=== PATIENT | female | born 1955 | race Two or more races ===

== ENCOUNTER 2022-09-19 18:58 | Emergency (ER) | payer OTHER ==
[~2022-09-19] VITALS: Ht 152.4 cm; Wt 68.0 kg
[~2022-09-19 18:58] MED LIST: ATOR20TA50 PO; GABA300C10 PO; LOS25T PO
[2022-09-19 19:12] VITALS: BP 131/81
[2022-09-19] MEDS ORDERED: LIDOCAINE VISCOUS 2% 15ML UD PO ONE (19:30)
[2022-09-19] MEDS ORDERED: ALUM & MAG HYDROX-SIMETH LIQ(MAALOX) 30 ML PO ONE (19:30)
[2022-09-19] MEDS ORDERED: DONNATAL 5ml ORAL Elix (BELLADONNA ALK-PHENOBARB) PO ONE (19:30)
[2022-09-19 20:11] LABS: Urine Bacteria NONE SEEN /hpf (None Seen); Urine Blood 1+ /uL (Negative); Urine Specific Gravity 1.003 (1.001-1.035); Urine WBC 1 /hpf (0 - 5)
[2022-09-19 20:23] LABS: Basophils # (auto) 0 10 ^3/uL (0-0.2); Basophils % (auto) 0.5 % (0.0-2.0); Eosinophils # (auto) 0.2 10 ^3/uL (0-0.8); Eosinophils % (auto) 2.4 % (0.0-7.0); Hematocrit 32.8 % (36.0-46.0); Hemoglobin 11.1 g/dL (12.2-16.2); Lymphocytes # (auto) 1.7 10 ^3/uL (0.4-5.4); Lymphocytes % (auto) 24.4 % (10.0-50.0); Mean Corpuscular Hemoglobin 28.8 pg (28.0-32.0); Mean Corpuscular Hgb Conc. 33.7 g/dL (32.0-36.0); Mean Corpuscular Volume 85.3 fL (80.0-100.0); Monocytes # (auto) 0.6 10 ^3/uL (0-1.3); Neutrophils # (auto) 4.6 10 ^3/uL (1.6-8.6); Neutrophils % (auto) 64.7 % (37.0-80.0); Nucleated Red Blood Cells % 0.1 %; Red Blood Cells 3.84 10^6/uL (4.0-5.20); Red Cell Distribution Width 14.6 % (11.8-14.3); White Blood Cell 7.1 10^3/uL (4.4-10.8)
[2022-09-19 20:39] LABS: Albumin 4.2 g/dL (3.4-5.0); BUN/Creatinine Ratio 25.4; Calcium 9.8 mg/dL (8.5-10.1); Potassium 4.3 mmol/L (3.5-5.1)
[2022-09-19 20:42] LABS: Bilirubin, Total 0.4 mg/dL (0.2-1.0); Total Protein 7.8 g/dL (6.4-8.2)
== END 2022-09-20 00:56 | disposition left against medical advice (07) ==
LOC: EDBD 18:58 → ER 19:00
DX: K80.20 Calculus of gallbladder without cholecystitis without obstruction (principal); I10 Essential (primary) hypertension; E11.9 Type 2 diabetes mellitus without complications; Z90.710 Acquired absence of both cervix and uterus; Z88.6 Allergy status to analgesic agent
CPT/HCPCS: 36415; 74176; 80053; 81001; 84484; 85025

== ENCOUNTER 2022-11-22 09:04 | Emergency (ER) | payer OTHER ==
[~2022-11-22] VITALS: Ht 157.5 cm; Wt 55.0 kg
[2022-11-22] MEDS ORDERED: SODIUM CHLORIDE 0.9% 1,000 ML IV ONE (09:30)
[2022-11-22 09:39] LABS: Basophils # (auto) 0 10 ^3/uL (0-0.2); Basophils % (auto) 0.7 % (0.0-2.0); Eosinophils # (auto) 0.1 10 ^3/uL (0-0.8); Eosinophils % (auto) 1.5 % (0.0-7.0); Hemoglobin 10.3 g/dL (12.2-16.2); Lymphocytes # (auto) 1.6 10 ^3/uL (0.4-5.4); Lymphocytes % (auto) 24.7 % (10.0-50.0); Mean Corpuscular Hemoglobin 27.7 pg (28.0-32.0); Mean Corpuscular Hgb Conc. 32.1 g/dL (32.0-36.0); Mean Corpuscular Volume 86.3 fL (80.0-100.0); Monocytes # (auto) 0.4 10 ^3/uL (0-1.3); Monocytes % (auto) 5.4 % (0.0-12.0); Neutrophils # (auto) 4.5 10 ^3/uL (1.6-8.6); Neutrophils % (auto) 67.7 % (37.0-80.0); Nucleated Red Blood Cells % 0.1 %; Red Blood Cells 3.71 10^6/uL (4.0-5.20); Red Cell Distribution Width 15.8 % (11.8-14.3); White Blood Cell 6.6 10^3/uL (4.4-10.8)
[2022-11-22 09:53] LABS: Calcium 9.1 mg/dL (8.5-10.1); Potassium 4.1 mmol/L (3.5-5.1)
[2022-11-22 09:56] LABS: BUN/Creatinine Ratio 14.5; Bilirubin, Total 0.5 mg/dL (0.2-1.0)
[2022-11-22] MEDS ORDERED: PRED20TA2 PO (12:21)
[2022-11-22] MEDS ORDERED: MECL1TAB42 PO (12:21)
[2022-11-22 13:07] VITALS: BP 117/73
== END 2022-11-22 13:16 | disposition home or self-care (01) ==
LOC: ER 09:04
DX: R55 Syncope and collapse (principal); J18.9 Pneumonia, unspecified organism; E11.9 Type 2 diabetes mellitus without complications; I10 Essential (primary) hypertension; Z88.6 Allergy status to analgesic agent; Z79.899 Other long term (current) drug therapy
CPT/HCPCS: 36415; 70450; 71250; 80053; 84484; 85025; 93005

== ENCOUNTER → 2022-11-29 | Outpatient (CLI) | payer OTHER ==
[~2022-11-29] MED LIST changes: +MECL1TAB42 PO; +PRED20TA2 PO
[2022-11-29 11:10] LABS: Basophils # (auto) 0 10 ^3/uL (0-0.2); Basophils % (auto) 0.4 % (0.0-2.0); Eosinophils # (auto) 0 10 ^3/uL (0-0.8); Eosinophils % (auto) 0.1 % (0.0-7.0); Hemoglobin 10.7 g/dL (12.2-16.2); Lymphocytes # (auto) 2.5 10 ^3/uL (0.4-5.4); Lymphocytes % (auto) 22.5 % (10.0-50.0); Mean Corpuscular Hemoglobin 27.6 pg (28.0-32.0); Mean Corpuscular Hgb Conc. 32.4 g/dL (32.0-36.0); Mean Corpuscular Volume 85.3 fL (80.0-100.0); Monocytes # (auto) 0.9 10 ^3/uL (0-1.3); Monocytes % (auto) 8.4 % (0.0-12.0); Neutrophils # (auto) 7.6 10 ^3/uL (1.6-8.6); Neutrophils % (auto) 68.6 % (37.0-80.0); Red Blood Cells 3.87 10^6/uL (4.0-5.20); Red Cell Distribution Width 16.4 % (11.8-14.3); White Blood Cell 11.1 10^3/uL (4.4-10.8)
[2022-11-29 12:02] LABS: Urine Bacteria FEW /hpf (None Seen); Urine Blood 1+ /uL (Negative); Urine Mucus FEW (None Seen); Urine Specific Gravity 1.022 (1.001-1.035); Urine WBC 2 /hpf (0 - 5)
[2022-11-29 12:11] LABS: Folate (Folic Acid) 15.3 ng/mL (5.38-24)
[2022-11-29 12:18] LABS: Albumin 4.2 g/dL (3.4-5.0); BUN/Creatinine Ratio 23.5; Bilirubin, Total 0.6 mg/dL (0.2-1.0); Calcium 9.7 mg/dL (8.5-10.1); Total Protein 7.8 g/dL (6.4-8.2); Uric Acid 4.1 mg/dL (2.6-6.0)
== END | disposition home or self-care (01) ==
LOC: LAB 10:28
PROVIDERS: ATTEND Nurse Practitioner Family
DX: Z09 Encounter for follow-up examination after completed treatment for conditions other than malignant neoplasm (principal); C79.31 Secondary malignant neoplasm of brain; R42 Dizziness and giddiness; E11.9 Type 2 diabetes mellitus without complications; F41.9 Anxiety disorder, unspecified; M54.9 Dorsalgia, unspecified; I50.30 Unspecified diastolic (congestive) heart failure; R06.02 Shortness of breath
CPT/HCPCS: 36415; 80053; 80061; 81001; 82306; 82607; 82746; 83036; 84443; 84550; 85025; 87086

== ENCOUNTER 2023-01-17 22:36 | Inpatient (IN) | payer OTHER ==
[~2023-01-17] VITALS: Ht 157.5 cm; Wt 59.1 kg
[2023-01-17 23:51] VITALS: BP 107/71
[2023-01-18] VITALS: BP 127/63
[2023-01-18] MEDS ORDERED: ASCO-75 PO (00:15)
[2023-01-18] MEDS ORDERED: FAMO20TA10 PO (00:15)
[2023-01-18] MEDS ORDERED: METF-372 PO (00:15)
[2023-01-18] MEDS ORDERED: MORPHINE SULFATE INJ 2 MG/ml SYRG IV PRN (02:45)
[2023-01-18] MEDS ORDERED: ACETAMINOPHEN 325 MG TAB PO PRN (02:45)
[2023-01-18 03:30] LABS: Basophils # (auto) 0.1 10 ^3/uL (0-0.2); Basophils % (auto) 1.3 % (0.0-2.0); Eosinophils # (auto) 0.2 10 ^3/uL (0-0.8); Hematocrit 29.6 % (36.0-46.0); Hemoglobin 9.7 g/dL (12.2-16.2); Lymphocytes # (auto) 1.3 10 ^3/uL (0.4-5.4); Lymphocytes % (auto) 25.4 % (10.0-50.0); Mean Corpuscular Hemoglobin 28.4 pg (28.0-32.0); Mean Corpuscular Hgb Conc. 32.9 g/dL (32.0-36.0); Mean Corpuscular Volume 86.1 fL (80.0-100.0); Monocytes # (auto) 0.4 10 ^3/uL (0-1.3); Monocytes % (auto) 7.2 % (0.0-12.0); Neutrophils # (auto) 3.3 10 ^3/uL (1.6-8.6); Neutrophils % (auto) 63.1 % (37.0-80.0); Nucleated Red Blood Cells % 0.2 %; Red Blood Cells 3.44 10^6/uL (4.0-5.20); Red Cell Distribution Width 16.4 % (11.8-14.3); White Blood Cell 5.2 10^3/uL (4.4-10.8)
[2023-01-18 03:37] LABS: Albumin 3.3 g/dL (3.4-5.0); Calcium 8.9 mg/dL (8.5-10.1)
[2023-01-18 03:41] LABS: BUN/Creatinine Ratio 19.7 (10.0-20.0); Bilirubin, Total 0.4 mg/dL (0.2-1.0); Total Protein 6.5 g/dL (6.4-8.2)
[2023-01-18 04:06] LABS: Urine Bacteria NONE SEEN /hpf (None Seen); Urine Blood Negative /uL (Negative); Urine Specific Gravity 1.028 (1.001-1.035); Urine WBC 3 /hpf (0 - 5)
[2023-01-18 04:37] VITALS: BP 119/71
[2023-01-18 09:00] VITALS: BP 120/73
[2023-01-18] MEDS: ENOXAPARIN SOD 40 MG/0.4 ML SYRINGE SC SCH (09:12)
[2023-01-18] MEDS ORDERED: HYDROmorphone HCL 2 MG/ML VL/or syr IV PRN (09:30)
[2023-01-18] MEDS ORDERED: DEXTROSE (50%) 50ML SYRG IV PRN (09:30)
[2023-01-18] MEDS ORDERED: LORazepam 2MG/ML-1ML VIAL IV ONE (09:30)
[2023-01-18] MEDS ORDERED: LOSARTAN POTASSIUM 25 MG TAB PO SCH (10:00)
[2023-01-18] MEDS: PANTOPRAZOLE 40 MG/10 ML VIAL INJ IV SCH (10:28)
[2023-01-18] MEDS: ONDANSETRON HCL 4 MG/2 ML VIAL IV PRN ×2 (11:40→15:31)
[2023-01-18] MEDS: ACCU-CHEK COMFORT CURVE STRIP VI SCH ×2 (12:00→17:01)
[2023-01-18] MEDS: InsuLIN REG 1unit/0.01ml Soln (100units/ml) SC SCH ×2 (12:00→17:06)
[2023-01-18 13:00] VITALS: BP 123/70
[2023-01-18 17:00] VITALS: BP 125/64
[2023-01-18 22:00] VITALS: BP 127/63
[2023-01-18] MEDS: TEMAZEPAM 15 MG CAP PO PRN (22:01)
[2023-01-18] MEDS: ATORVASTATIN 20 MG TAB PO SCH (22:01)
[2023-01-19] MEDS: ACCU-CHEK COMFORT CURVE STRIP VI SCH ×5 (01:04→23:15)
[2023-01-19] MEDS: InsuLIN REG 1unit/0.01ml Soln (100units/ml) SC SCH ×5 (01:04→23:17)
[2023-01-19 04:20] LABS: Basophils # (auto) 0 10 ^3/uL (0-0.2); Basophils % (auto) 0.5 % (0.0-2.0); Eosinophils # (auto) 0.1 10 ^3/uL (0-0.8); Eosinophils % (auto) 2.2 % (0.0-7.0); Hematocrit 29.2 % (36.0-46.0); Hemoglobin 9.8 g/dL (12.2-16.2); Lymphocytes # (auto) 1.5 10 ^3/uL (0.4-5.4); Lymphocytes % (auto) 25.1 % (10.0-50.0); Mean Corpuscular Hemoglobin 28.6 pg (28.0-32.0); Mean Corpuscular Hgb Conc. 33.7 g/dL (32.0-36.0); Monocytes # (auto) 0.5 10 ^3/uL (0-1.3); Monocytes % (auto) 7.9 % (0.0-12.0); Neutrophils # (auto) 3.8 10 ^3/uL (1.6-8.6); Neutrophils % (auto) 64.3 % (37.0-80.0); Nucleated Red Blood Cells % 0.1 %; Red Blood Cells 3.44 10^6/uL (4.0-5.20); Red Cell Distribution Width 16.3 % (11.8-14.3); White Blood Cell 5.9 10^3/uL (4.4-10.8)
[2023-01-19 04:32] LABS: INR 1.05 (0.9-1.15); Partial Thromboplastin Time 26.7 sec (24.6-33.4)
[2023-01-19 04:34] LABS: Calcium 9.4 mg/dL (8.5-10.1); Potassium 3.8 mmol/L (3.5-5.1)
[2023-01-19 04:37] LABS: BUN/Creatinine Ratio 16.4 (10.0-20.0)
[2023-01-19 05:00] VITALS: BP 117/66
[2023-01-19 08:00] VITALS: BP 135/80
[2023-01-19 09:00] VITALS: BP_SYST 105; BP_SYST 135; BP_DIAS 58; BP_DIAS 77
[2023-01-19] MEDS: ENOXAPARIN SOD 40 MG/0.4 ML SYRINGE SC SCH (09:19)
[2023-01-19] MEDS: PANTOPRAZOLE 40 MG/10 ML VIAL INJ IV SCH (09:19)
[2023-01-19] MEDS: HYDROcodone-ACET 5/325MG TAB PO PRN (09:20)
[2023-01-19] MEDS ORDERED: KETOROLAC TROMETH 30 MG/ML 1ML VIAL IV ONE ×2 (10:30→11:30)
[2023-01-19] MEDS: methylPREDNISolone 4 MG TAB PO SCH ×2 (12:22→21:53)
[2023-01-19 13:00] VITALS: BP 115/60
[2023-01-19 17:00] VITALS: BP 151/92
[2023-01-19] MEDS: ATORVASTATIN 20 MG TAB PO SCH (21:53)
[2023-01-19 22:00] VITALS: BP 137/76
[2023-01-20 05:00] VITALS: BP 127/69
[2023-01-20] MEDS: ACCU-CHEK COMFORT CURVE STRIP VI SCH ×4 (06:15→23:57)
[2023-01-20] MEDS: InsuLIN REG 1unit/0.01ml Soln (100units/ml) SC SCH ×4 (07:11→23:57)
[2023-01-20 08:35] VITALS: BP 159/72
[2023-01-20] MEDS: HYDROcodone-ACET 5/325MG TAB PO PRN ×2 (11:02→20:45)
[2023-01-20 11:46] LABS: Hepatitis C Antibody Negative (Negative)
[2023-01-20 12:00] VITALS: BP 134/76
[2023-01-20] MEDS: PANTOPRAZOLE 40 MG TAB PO SCH (12:42)
[2023-01-20] MEDS: ENOXAPARIN SOD 40 MG/0.4 ML SYRINGE SC SCH (12:43)
[2023-01-20] MEDS: methylPREDNISolone 4 MG TAB PO SCH ×2 (13:02→21:57)
[2023-01-20 16:30] VITALS: BP 146/76
[2023-01-20] MEDS: GABAPENTIN 100 MG CAP PO SCH (21:57)
[2023-01-20] MEDS: ATORVASTATIN 20 MG TAB PO SCH (21:57)
[2023-01-20] MEDS: TEMAZEPAM 15 MG CAP PO PRN (21:57)
[2023-01-20 22:00] VITALS: BP 139/71
[2023-01-21 05:00] VITALS: BP 110/66
[2023-01-21] MEDS: ACCU-CHEK COMFORT CURVE STRIP VI SCH ×2 (05:53→12:00)
[2023-01-21] MEDS: InsuLIN REG 1unit/0.01ml Soln (100units/ml) SC SCH ×2 (05:57→12:39)
[2023-01-21] MEDS: PANTOPRAZOLE 40 MG TAB PO SCH (08:59)
[2023-01-21] MEDS: ENOXAPARIN SOD 40 MG/0.4 ML SYRINGE SC SCH (08:59)
[2023-01-21] MEDS: methylPREDNISolone 4 MG TAB PO SCH (08:59)
[2023-01-21] MEDS: GABAPENTIN 100 MG CAP PO SCH (08:59)
[2023-01-21] MEDS ORDERED: LISI-716 PO ×4 (09:17→09:18)
[2023-01-21] MEDS ORDERED: METO-6 PO ×4 (09:17→09:18)
[2023-01-21] MEDS ORDERED: HYDR-4902 PO (09:21)
[2023-01-21] MEDS ORDERED: GAB100C PO (09:21)
[2023-01-21 09:29] VITALS: BP 126/77
[2023-01-21] MEDS: HYDROcodone-ACET 5/325MG TAB PO PRN (12:01)
[2023-01-21 13:00] VITALS: BP 144/77
== END 2023-01-21 14:59 | disposition home or self-care (01) | DRG 552 ==
LOC: CENTRAL 22:36
PROVIDERS: ADMIT Nurse Practitioner; ATTEND Nurse Practitioner Acute Care
DX: M47.26 Other spondylosis with radiculopathy, lumbar region (principal); E44.0 Moderate protein-calorie malnutrition; E11.9 Type 2 diabetes mellitus without complications; E78.5 Hyperlipidemia, unspecified; I10 Essential (primary) hypertension; C50.919 Malignant neoplasm of unspecified site of unspecified female breast; Z91.013 Allergy to seafood; Z85.3 Personal history of malignant neoplasm of breast; Z88.6 Allergy status to analgesic agent; Z79.899 Other long term (current) drug therapy; Z90.13 Acquired absence of bilateral breasts and nipples; Z90.710 Acquired absence of both cervix and uterus; Z92.21 Personal history of antineoplastic chemotherapy; Z92.3 Personal history of irradiation; Z68.23 Body mass index [BMI] 23.0-23.9, adult; Z88.8 Allergy status to other drugs, medicaments and biological substances
CPT/HCPCS: 36415; 72148; 80048; 80053; 81001; 82962; 85025; 85610; 85730; 86803; 87081; 87340; 97110; 97116; 97163; 97530; C9113; G0378; J1815; J1885; J2405

== ENCOUNTER 2023-02-22 11:34 | Inpatient (IN) | payer OTHER ==
[~2023-02-22] VITALS: Ht 157.5 cm; Wt 53.7 kg
[~2023-02-22 11:34] MED LIST changes: +ASCO500T6 PO; +FAMO20TA10 PO; +GAB100C PO; +GABA-1250 PO; -GABA300C10 PO; +HYDR-4902 PO; +METF-372 PO
[2023-02-22 12:09] LABS: Basophils # (auto) 0 10 ^3/uL (0-0.2); Basophils % (auto) 0.5 % (0.0-2.0); Eosinophils # (auto) 0.1 10 ^3/uL (0-0.8); Eosinophils % (auto) 1.1 % (0.0-7.0); Hematocrit 34.2 % (36.0-46.0); Hemoglobin 10.9 g/dL (12.2-16.2); Lymphocytes # (auto) 0.6 10 ^3/uL (0.4-5.4); Lymphocytes % (auto) 6.8 % (10.0-50.0); Mean Corpuscular Hemoglobin 28.4 pg (28.0-32.0); Mean Corpuscular Volume 88.7 fL (80.0-100.0); Monocytes # (auto) 0.8 10 ^3/uL (0-1.3); Monocytes % (auto) 8.8 % (0.0-12.0); Neutrophils # (auto) 7.3 10 ^3/uL (1.6-8.6); Neutrophils % (auto) 82.8 % (37.0-80.0); Red Blood Cells 3.86 10^6/uL (4.0-5.20); Red Cell Distribution Width 15.9 % (11.8-14.3); White Blood Cell 8.8 10^3/uL (4.4-10.8)
[2023-02-22 12:27] LABS: INR 0.97 (0.9-1.15); Partial Thromboplastin Time 29.1 sec (24.6-33.4)
[2023-02-22 12:53] LABS: Lactic Acid w/Reflex 2.3 mmol/L (0.4-2.0)
[2023-02-22 12:54] LABS: Albumin 3.7 g/dL (3.4-5.0); BUN/Creatinine Ratio 16.4 (10.0-20.0); Calcium 9.2 mg/dL (8.5-10.1); Potassium 4.5 mmol/L (3.5-5.1)
[2023-02-22 12:56] LABS: Bilirubin, Total 0.5 mg/dL (0.2-1.0); Total Protein 7.3 g/dL (6.4-8.2)
[2023-02-22] MEDS ORDERED: IOHEXOL 350 MG/ML 100ML IJ ONE ×2 (13:31→13:40)
[2023-02-22] MEDS ORDERED: ACETAMINOPHEN 325 MG TAB PO ONE (14:00)
[2023-02-22] MEDS ORDERED: PIPERACILLIN-TAZOB 3.375GM 100 ML IV ONE (14:00)
[2023-02-22] MEDS ORDERED: SODIUM CHLORIDE 0.9% 1,000 ML IV ONE (14:00)
[2023-02-22] MEDS ORDERED: guaiFENesin-CODEINE Liq 5 ML UD PO ONE (14:45)
[2023-02-22] MEDS ORDERED: HYDROcodone-ACET 5/325MG TAB PO PRN (15:30)
[2023-02-22] MEDS ORDERED: NITROGLYCERIN 0.4 MG SL TAB SL PRN (15:30)
[2023-02-22] MEDS ORDERED: MORPHINE SULFATE INJ 2 MG/ml SYRG IV PRN (15:30)
[2023-02-22] MEDS ORDERED: IPRATROPIUM BROM 0.5 MG/2.5ML INH SOL NEB PRN (15:30)
[2023-02-22] MEDS ORDERED: ACETAMINOPHEN 325 MG TAB PO PRN (15:30)
[2023-02-22] MEDS ORDERED: PROMETHAZINE W/CODEINE 5 ML ORAL SYRUP PO PRN (15:30)
[2023-02-22] MEDS ORDERED: ONDANSETRON HCL 4 MG/2 ML VIAL IV PRN (15:30)
[2023-02-22] MEDS ORDERED: DEXTROSE (50%) 50ML SYRG IV PRN (15:45)
[2023-02-22] MEDS: AZITHROMYCIN 500MG/ 250ML 250 ML IV SCH (16:44)
[2023-02-22] MEDS: InsuLIN REG 1unit/0.01ml Soln (100units/ml) SC SCH ×2 (17:33→22:00)
[2023-02-22] MEDS: ACCU-CHEK COMFORT CURVE STRIP VI SCH ×2 (17:33→22:00)
[2023-02-22 18:52] VITALS: BP 133/58
[2023-02-22] MEDS: GABAPENTIN 300 MG CAP PO SCH (22:00)
[2023-02-23 05:00] VITALS: BP 126/68
[2023-02-23 05:47] LABS: Basophils # (auto) 0 10 ^3/uL (0-0.2); Basophils % (auto) 0.5 % (0.0-2.0); Eosinophils # (auto) 0.1 10 ^3/uL (0-0.8); Eosinophils % (auto) 2.4 % (0.0-7.0); Hematocrit 30.6 % (36.0-46.0); Hemoglobin 9.9 g/dL (12.2-16.2); Lymphocytes # (auto) 0.6 10 ^3/uL (0.4-5.4); Lymphocytes % (auto) 10.4 % (10.0-50.0); Mean Corpuscular Hemoglobin 28.6 pg (28.0-32.0); Mean Corpuscular Hgb Conc. 32.5 g/dL (32.0-36.0); Mean Corpuscular Volume 88.1 fL (80.0-100.0); Monocytes # (auto) 0.7 10 ^3/uL (0-1.3); Monocytes % (auto) 13.2 % (0.0-12.0); Neutrophils % (auto) 73.5 % (37.0-80.0); Red Blood Cells 3.47 10^6/uL (4.0-5.20); Red Cell Distribution Width 16.1 % (11.8-14.3); White Blood Cell 5.4 10^3/uL (4.4-10.8)
[2023-02-23 06:05] LABS: Potassium 3.8 mmol/L (3.5-5.1)
[2023-02-23 06:18] LABS: Albumin 3.4 g/dL (3.4-5.0); BUN/Creatinine Ratio 16.2 (10.0-20.0); Bilirubin, Total 0.4 mg/dL (0.2-1.0); Calcium 8.6 mg/dL (8.5-10.1); Total Protein 6.5 g/dL (6.4-8.2)
[2023-02-23] MEDS: ACCU-CHEK COMFORT CURVE STRIP VI SCH ×3 (06:53→18:07)
[2023-02-23] MEDS: InsuLIN REG 1unit/0.01ml Soln (100units/ml) SC SCH ×3 (06:54→18:48)
[2023-02-23 08:00] VITALS: BP 116/57
[2023-02-23] MEDS: MORPHINE SULFATE INJ 2 MG/ml SYRG IV PRN ×2 (08:22→12:51)
[2023-02-23] MEDS ORDERED: cefTRIAXone 1GM/50ML D5W 50 ML IV ONE (09:15)
[2023-02-23] MEDS: GABAPENTIN 300 MG CAP PO SCH (09:57)
[2023-02-23] MEDS ORDERED: ASCORBIC ACID 500 MG TAB PO SCH (10:00)
[2023-02-23] MEDS ORDERED: LOSARTAN POTASSIUM 25 MG TAB PO SCH (10:00)
[2023-02-23] MEDS ORDERED: ATORVASTATIN 20 MG TAB PO SCH (10:00)
[2023-02-23] MEDS ORDERED: FAMOTIDINE 20 MG TAB PO SCH (10:00)
[2023-02-23] MEDS: AZITHROMYCIN 500MG/ 250ML 250 ML IV SCH (10:42)
[2023-02-23 13:00] VITALS: BP 129/63
[2023-02-23] MEDS ORDERED: LEVO750T8 PO (13:10)
[2023-02-23] MEDS ORDERED: ALBUAER3 IN (13:10)
[2023-02-23 13:34] LABS: Urine Bacteria NONE SEEN /hpf (None Seen); Urine Blood Negative /uL (Negative); Urine Specific Gravity 1.005 (1.001-1.035); Urine WBC 1 /hpf (0 - 5)
[2023-02-23 14:48] VITALS: BP 129/63
[2023-02-24] MEDS ORDERED: cefTRIAXone 1GM/50ML D5W 50 ML IV SCH (09:00)
== END 2023-02-23 19:53 | disposition home health service (06) | DRG 871 ==
LOC: ER 11:34 → TELE 15:32 → TELE-EAST 21:55
PROVIDERS: ADMIT Nurse Practitioner; ATTEND Internal Medicine
DX: A41.9 Sepsis, unspecified organism (principal); J18.9 Pneumonia, unspecified organism; E78.5 Hyperlipidemia, unspecified; E11.65 Type 2 diabetes mellitus with hyperglycemia; C50.919 Malignant neoplasm of unspecified site of unspecified female breast; G30.9 Alzheimer's disease, unspecified; F02.80 Dementia in other diseases classified elsewhere, unspecified severity, without behavioral disturbance, psychotic disturbance, mood disturbance, and anxiety; I10 Essential (primary) hypertension; Z20.822 Contact with and (suspected) exposure to COVID-19; Z85.3 Personal history of malignant neoplasm of breast; Z87.01 Personal history of pneumonia (recurrent); Z91.013 Allergy to seafood; Z88.6 Allergy status to analgesic agent; Z92.3 Personal history of irradiation
CPT/HCPCS: 36415; 71045; 71275; 80053; 81001; 82043; 82962; 83605; 83735; 83880; 84484; 85025; 85379; 85610; 85730; 87040; 87426; 87804; 93005; G0378; J0696; J1815; J2543

== ENCOUNTER → 2023-03-22 | Outpatient (CLI) | payer OTHER ==
[~2023-03-22] MED LIST changes: +ALBUAER3 IN; +LEVO750T8 PO; -PRED20TA2 PO
[2023-03-22 09:37] LABS: Basophils # (auto) 0 10 ^3/uL (0-0.2); Basophils % (auto) 0.6 % (0.0-2.0); Eosinophils # (auto) 0.1 10 ^3/uL (0-0.8); Eosinophils % (auto) 2.1 % (0.0-7.0); Hematocrit 32.3 % (36.0-46.0); Hemoglobin 10.5 g/dL (12.2-16.2); Lymphocytes # (auto) 0.9 10 ^3/uL (0.4-5.4); Lymphocytes % (auto) 17.2 % (10.0-50.0); Mean Corpuscular Hemoglobin 28.4 pg (28.0-32.0); Mean Corpuscular Hgb Conc. 32.4 g/dL (32.0-36.0); Mean Corpuscular Volume 87.5 fL (80.0-100.0); Monocytes # (auto) 0.5 10 ^3/uL (0-1.3); Monocytes % (auto) 10.3 % (0.0-12.0); Neutrophils # (auto) 3.7 10 ^3/uL (1.6-8.6); Neutrophils % (auto) 69.8 % (37.0-80.0); Red Blood Cells 3.69 10^6/uL (4.0-5.20); White Blood Cell 5.3 10^3/uL (4.4-10.8)
[2023-03-22 10:51] LABS: Potassium 4.4 mmol/L (3.5-5.1)
[2023-03-22 10:56] LABS: Albumin 3.8 g/dL (3.4-5.0); BUN/Creatinine Ratio 21.6 (10.0-20.0); Bilirubin, Total 0.7 mg/dL (0.2-1.0); Calcium 9.2 mg/dL (8.5-10.1); Total Protein 7.6 g/dL (6.4-8.2)
== END | disposition home or self-care (01) ==
LOC: LAB 09:20
PROVIDERS: ATTEND Internal Medicine
DX: C50.911 Malignant neoplasm of unspecified site of right female breast (principal); Z88.8 Allergy status to other drugs, medicaments and biological substances
CPT/HCPCS: 36415; 80053; 83615; 85025; 86300

== ENCOUNTER 2023-05-15 12:16 | Inpatient (IN) | payer OTHER ==
[~2023-05-15] VITALS: Ht 160 cm; Wt 56.0 kg
[2023-05-15 13:32] LABS: Basophils # (auto) 0 10 ^3/uL (0-0.2); Basophils % (auto) 0.6 % (0.0-2.0); Eosinophils # (auto) 0.1 10 ^3/uL (0-0.8); Eosinophils % (auto) 1.9 % (0.0-7.0); Hematocrit 33.4 % (36.0-46.0); Hemoglobin 10.8 g/dL (12.2-16.2); Lymphocytes # (auto) 1.2 10 ^3/uL (0.4-5.4); Mean Corpuscular Hemoglobin 28.2 pg (28.0-32.0); Mean Corpuscular Hgb Conc. 32.3 g/dL (32.0-36.0); Mean Corpuscular Volume 87.4 fL (80.0-100.0); Monocytes # (auto) 0.6 10 ^3/uL (0-1.3); Monocytes % (auto) 9.3 % (0.0-12.0); Neutrophils # (auto) 4.2 10 ^3/uL (1.6-8.6); Neutrophils % (auto) 68.2 % (37.0-80.0); Red Blood Cells 3.82 10^6/uL (4.0-5.20); Red Cell Distribution Width 15.8 % (11.8-14.3); White Blood Cell 6.2 10^3/uL (4.4-10.8)
[2023-05-15 13:50] LABS: BUN/Creatinine Ratio 28.6 (10.0-20.0); Calcium 8.9 mg/dL (8.5-10.1); Magnesium 1.8 mg/dL (1.6-2.6); Potassium 3.7 mmol/L (3.5-5.1)
[2023-05-15 13:52] LABS: Lactic Acid w/Reflex 2.8 mmol/L (0.4-2.0)
[2023-05-15 13:53] LABS: Bilirubin, Total 0.5 mg/dL (0.2-1.0); Total Protein 8.1 g/dL (6.4-8.2)
[2023-05-15 14:33] LABS: COVID19 ANTIGEN SOFIA FIA NEGATIVE (NEGATIVE)
[2023-05-15] MEDS ORDERED: MORPHINE SULFATE INJ 2 MG/ml SYRG IV PRN (16:30)
[2023-05-15] MEDS ORDERED: IPRATROPIUM BROM 0.5 MG/2.5ML INH SOL NEB PRN (16:30)
[2023-05-15] MEDS ORDERED: NITROGLYCERIN 0.4 MG SL TAB SL PRN (16:30)
[2023-05-15] MEDS ORDERED: DOCUSATE SOD 100 MG CAP PO PRN (16:30)
[2023-05-15] MEDS ORDERED: ALBUTEROL SULF 2.5 MG/0.5ML(0.5%) NEB SOLN NEB PRN (16:30)
[2023-05-15] MEDS ORDERED: DEXTROSE (50%) 50ML SYRG IV PRN (16:30)
[2023-05-15] MEDS: InsuLIN REG 1unit/0.01ml Soln (100units/ml) SC SCH ×3 (17:00→23:14)
[2023-05-15] MEDS: ACCU-CHEK COMFORT CURVE STRIP VI SCH ×2 (17:10→23:14)
[2023-05-15] MEDS: cefTRIAXone 1GM/50ML D5W 50 ML IV SCH (17:19)
[2023-05-15] MEDS: HYDROcodone-ACET 5/325MG TAB PO PRN ×2 (17:20→23:11)
[2023-05-15 17:22] VITALS: PULSE 91; RESP 18; O2SAT 99
[2023-05-15 19:57] VITALS: BP 99/76; PULSE 96; RESP 18; TEMP 98.2; O2SAT 99
[2023-05-15] MEDS: FAMOTIDINE 20 MG TAB PO SCH (23:10)
[2023-05-15] MEDS: GABAPENTIN 300 MG CAP PO SCH (23:10)
[2023-05-15] MEDS: SODIUM CHLOR 0.9% PF (SALINE LOCK) 10ML VIAL/SYR IV SCH (23:15)
[2023-05-16] MEDS: ONDANSETRON HCL 4 MG/2 ML VIAL IV PRN (01:51)
[2023-05-16 05:36] LABS: Potassium 4.2 mmol/L (3.5-5.1)
[2023-05-16] MEDS: SODIUM CHLOR 0.9% PF (SALINE LOCK) 10ML VIAL/SYR IV SCH ×3 (05:38→21:12)
[2023-05-16 05:42] LABS: Basophils # (auto) 0.1 10 ^3/uL (0-0.2); Basophils % (auto) 1.5 % (0.0-2.0); Eosinophils # (auto) 0.1 10 ^3/uL (0-0.8); Eosinophils % (auto) 1.5 % (0.0-7.0); Hematocrit 31.7 % (36.0-46.0); Hemoglobin 10.2 g/dL (12.2-16.2); Lymphocytes # (auto) 1.1 10 ^3/uL (0.4-5.4); Lymphocytes % (auto) 16.1 % (10.0-50.0); Mean Corpuscular Hemoglobin 28.1 pg (28.0-32.0); Mean Corpuscular Hgb Conc. 32.1 g/dL (32.0-36.0); Mean Corpuscular Volume 87.5 fL (80.0-100.0); Monocytes # (auto) 0.7 10 ^3/uL (0-1.3); Monocytes % (auto) 9.8 % (0.0-12.0); Neutrophils # (auto) 4.9 10 ^3/uL (1.6-8.6); Neutrophils % (auto) 71.1 % (37.0-80.0); Nucleated Red Blood Cells % 0.1 %; Red Blood Cells 3.62 10^6/uL (4.0-5.20); Red Cell Distribution Width 15.7 % (11.8-14.3)
[2023-05-16 05:44] LABS: Albumin 3.7 g/dL (3.4-5.0); BUN/Creatinine Ratio 30.1 (10.0-20.0); Bilirubin, Total 0.4 mg/dL (0.2-1.0); Calcium 9.2 mg/dL (8.5-10.1); Total Protein 7.5 g/dL (6.4-8.2)
[2023-05-16] MEDS: ACCU-CHEK COMFORT CURVE STRIP VI SCH ×4 (07:00→21:12)
[2023-05-16] MEDS: InsuLIN REG 1unit/0.01ml Soln (100units/ml) SC SCH ×6 (08:12→21:17)
[2023-05-16 08:51] VITALS: PULSE 79; RESP 20; O2SAT 99
[2023-05-16] MEDS: cefTRIAXone 1GM/50ML D5W 50 ML IV SCH (09:26)
[2023-05-16] MEDS: GABAPENTIN 300 MG CAP PO SCH ×2 (09:27→21:10)
[2023-05-16] MEDS: FAMOTIDINE 20 MG TAB PO SCH ×2 (09:28→21:10)
[2023-05-16] MEDS ORDERED: LOSARTAN POTASSIUM 25 MG TAB PO SCH (10:00)
[2023-05-16] MEDS ORDERED: SODIUM CHLORIDE 0.9% 1,000 ML IV SCH (10:45)
[2023-05-16 13:18] VITALS: O2SAT 97
[2023-05-16] MEDS ORDERED: DEXTROSE (50%) 50ML SYRG IV PRN (16:00)
[2023-05-16 17:00] VITALS: BP 114/69; PULSE 83; RESP 17; TEMP 98.2; O2SAT 96
[2023-05-16] MEDS: ACETAMINOPHEN 325 MG TAB PO PRN (18:03)
[2023-05-16 20:00] VITALS: PULSE 74; PULSE 86; RESP 18; O2SAT 95
[2023-05-16] MEDS: ATORVASTATIN 20 MG TAB PO SCH (21:10)
[2023-05-16 22:00] VITALS: BP 105/57; PULSE 84; RESP 18; TEMP 97.7; O2SAT 96
[2023-05-17] VITALS (9 sets, daily range): BP systolic 109–126; BP diastolic 65–81; PULSE 75–96; RESP 16–20; TEMP 97.2–98.5; O2SAT 95–99
[2023-05-17] MEDS: MORPHINE SULFATE INJ 2 MG/ml SYRG IV PRN (04:37)
[2023-05-17] MEDS: SODIUM CHLOR 0.9% PF (SALINE LOCK) 10ML VIAL/SYR IV SCH ×3 (06:29→22:10)
[2023-05-17] MEDS: ACCU-CHEK COMFORT CURVE STRIP VI SCH ×4 (06:30→22:10)
[2023-05-17] MEDS: InsuLIN REG 1unit/0.01ml Soln (100units/ml) SC SCH ×5 (06:30→22:14)
[2023-05-17 06:31] LABS: Basophils # (auto) 0 10 ^3/uL (0-0.2); Basophils % (auto) 0.8 % (0.0-2.0); Eosinophils # (auto) 0.2 10 ^3/uL (0-0.8); Eosinophils % (auto) 2.9 % (0.0-7.0); Hematocrit 30.5 % (36.0-46.0); Hemoglobin 10.1 g/dL (12.2-16.2); Lymphocytes # (auto) 0.9 10 ^3/uL (0.4-5.4); Lymphocytes % (auto) 14.9 % (10.0-50.0); Mean Corpuscular Hemoglobin 28.8 pg (28.0-32.0); Mean Corpuscular Hgb Conc. 33.3 g/dL (32.0-36.0); Mean Corpuscular Volume 86.6 fL (80.0-100.0); Monocytes # (auto) 0.6 10 ^3/uL (0-1.3); Monocytes % (auto) 10.5 % (0.0-12.0); Neutrophils # (auto) 4.2 10 ^3/uL (1.6-8.6); Neutrophils % (auto) 70.9 % (37.0-80.0); Nucleated Red Blood Cells % 0.1 %; Red Blood Cells 3.52 10^6/uL (4.0-5.20); Red Cell Distribution Width 15.5 % (11.8-14.3); White Blood Cell 5.9 10^3/uL (4.4-10.8)
[2023-05-17 07:50] LABS: Urine Bacteria NONE SEEN /hpf (None Seen); Urine Blood Negative /uL (Negative); Urine Clarity Clear (Clear); Urine Color Colorless (Yellow); Urine Protein, UAD Negative (Negative); Urine Specific Gravity 1.012 (1.001-1.035); Urine Urobilinogen Normal (Negative); Urine WBC 1 /hpf (0 - 5); Urine pH 5.5 (5.0-8.0)
[2023-05-17 08:00] LABS: Calcium 8.9 mg/dL (8.7-10.4)
[2023-05-17 08:02] LABS: BUN/Creatinine Ratio 32.3 (10.0-20.0)
[2023-05-17] MEDS: FAMOTIDINE 20 MG TAB PO SCH ×2 (09:25→22:11)
[2023-05-17] MEDS: GABAPENTIN 300 MG CAP PO SCH ×2 (09:25→22:11)
[2023-05-17] MEDS ORDERED: methylPREDNISolone SOD SUCC 40 MG/ML VL IV ONE (12:00)
[2023-05-17] MEDS: ONDANSETRON HCL 4 MG/2 ML VIAL IV PRN (13:47)
[2023-05-17] MEDS: ACETAMINOPHEN 325 MG TAB PO PRN (13:53)
[2023-05-17] MEDS: ATORVASTATIN 20 MG TAB PO SCH (22:11)
[2023-05-17] MEDS ORDERED: TEMAZEPAM 15 MG CAP PO ONE (23:00)
[2023-05-18] VITALS (10 sets, daily range): BP systolic 121–144; BP diastolic 58–84; PULSE 82–97; RESP 16–18; TEMP 97.7–98.2; O2SAT 93–98
[2023-05-18] MEDS: methylPREDNISolone SOD SUCC 40 MG/ML VL IV SCH ×3 (00:39→21:47)
[2023-05-18] MEDS: MORPHINE SULFATE INJ 2 MG/ml SYRG IV PRN ×3 (05:24→21:48)
[2023-05-18 06:15] LABS: Basophils # (auto) 0 10 ^3/uL (0-0.2); Basophils % (auto) 0.2 % (0.0-2.0); Eosinophils # (auto) 0 10 ^3/uL (0-0.8); Hematocrit 29.8 % (36.0-46.0); Hemoglobin 9.9 g/dL (12.2-16.2); Lymphocytes # (auto) 0.7 10 ^3/uL (0.4-5.4); Lymphocytes % (auto) 8.6 % (10.0-50.0); Mean Corpuscular Hemoglobin 28.9 pg (28.0-32.0); Mean Corpuscular Hgb Conc. 33.2 g/dL (32.0-36.0); Mean Corpuscular Volume 87.2 fL (80.0-100.0); Monocytes # (auto) 0.1 10 ^3/uL (0-1.3); Neutrophils # (auto) 6.8 10 ^3/uL (1.6-8.6); Neutrophils % (auto) 90.2 % (37.0-80.0); Red Blood Cells 3.42 10^6/uL (4.0-5.20); Red Cell Distribution Width 15.4 % (11.8-14.3); White Blood Cell 7.6 10^3/uL (4.4-10.8)
[2023-05-18] MEDS: ACCU-CHEK COMFORT CURVE STRIP VI SCH ×4 (06:20→21:48)
[2023-05-18] MEDS: SODIUM CHLOR 0.9% PF (SALINE LOCK) 10ML VIAL/SYR IV SCH ×3 (06:20→21:49)
[2023-05-18] MEDS: InsuLIN REG 1unit/0.01ml Soln (100units/ml) SC SCH ×5 (06:23→22:11)
[2023-05-18 06:42] LABS: Alanine Aminotransferase 10 U/L (7-40); Albumin 4.3 g/dL (3.2-4.8); Alkaline Phosphatase 67 U/L (46-116); Anion Gap 7.4 (5-15); Calcium 9.4 mg/dL (8.7-10.4); Carbon Dioxide 25.6 mmol/L (20-30); Chloride 104 mmol/L (98-107); Glucose 239 mg/dL (74-106); Potassium 4.2 mmol/L (3.5-5.1); Sodium 137 mmol/L (136-145)
[2023-05-18 06:43] LABS: % Iron Saturation 8.7 % (15-50); Aspartate Aminotransferase 15 U/L (13-40); BUN/Creatinine Ratio 21.3 (10.0-20.0); Bilirubin, Total 0.5 mg/dL (0.2-1.0); Blood Urea Nitrogen 17 mg/dL (9-23)
[2023-05-18 07:30] LABS: Ferritin 6.1 ng/mL (10-291)
[2023-05-18] MEDS: GABAPENTIN 300 MG CAP PO SCH ×2 (09:40→21:48)
[2023-05-18] MEDS: FAMOTIDINE 20 MG TAB PO SCH (09:40)
[2023-05-18] MEDS: ATORVASTATIN 20 MG TAB PO SCH (21:48)
[2023-05-18] MEDS: ONDANSETRON HCL 4 MG/2 ML VIAL IV PRN (21:59)
[2023-05-19] VITALS (9 sets, daily range): BP systolic 120–141; BP diastolic 47–82; PULSE 73–93; RESP 16–18; TEMP 97.9–98.3; O2SAT 97–99
[2023-05-19 05:55] LABS: Basophils # (auto) 0 10 ^3/uL (0-0.2); Eosinophils # (auto) 0 10 ^3/uL (0-0.8); Hemoglobin 9.1 g/dL (12.2-16.2); Lymphocytes # (auto) 0.8 10 ^3/uL (0.4-5.4); Lymphocytes % (auto) 5.9 % (10.0-50.0); Mean Corpuscular Hemoglobin 28.5 pg (28.0-32.0); Mean Corpuscular Hgb Conc. 32.5 g/dL (32.0-36.0); Mean Corpuscular Volume 87.6 fL (80.0-100.0); Monocytes # (auto) 0.3 10 ^3/uL (0-1.3); Monocytes % (auto) 2.1 % (0.0-12.0); Neutrophils # (auto) 11.8 10 ^3/uL (1.6-8.6); Red Blood Cells 3.19 10^6/uL (4.0-5.20); Red Cell Distribution Width 15.6 % (11.8-14.3); White Blood Cell 12.9 10^3/uL (4.4-10.8)
[2023-05-19 06:04] LABS: Chloride 106 mmol/L (98-107); Potassium 4.4 mmol/L (3.5-5.1); Sodium 137 mmol/L (136-145)
[2023-05-19 06:05] LABS: Anion Gap 6.7 (5-15); Calcium 8.9 mg/dL (8.7-10.4); Carbon Dioxide 24.3 mmol/L (20-30)
[2023-05-19 06:10] LABS: BUN/Creatinine Ratio 18.4 (10.0-20.0); Blood Urea Nitrogen 14 mg/dL (9-23); Glucose 298 mg/dL (74-106)
[2023-05-19] MEDS: ACCU-CHEK COMFORT CURVE STRIP VI SCH ×4 (06:22→22:41)
[2023-05-19] MEDS: SODIUM CHLOR 0.9% PF (SALINE LOCK) 10ML VIAL/SYR IV SCH ×3 (06:22→22:40)
[2023-05-19] MEDS: InsuLIN REG 1unit/0.01ml Soln (100units/ml) SC SCH ×5 (06:26→22:39)
[2023-05-19] MEDS: methylPREDNISolone SOD SUCC 40 MG/ML VL IV SCH (09:13)
[2023-05-19] MEDS: GABAPENTIN 300 MG CAP PO SCH ×2 (09:13→22:38)
[2023-05-19] MEDS: HYDROcodone-ACET 5/325MG TAB PO PRN (18:28)
[2023-05-19] MEDS: ATORVASTATIN 20 MG TAB PO SCH (22:38)
[2023-05-19] MEDS: ACETAMINOPHEN 325 MG TAB PO PRN (22:39)
[2023-05-20] VITALS (7 sets, daily range): BP systolic 127–149; BP diastolic 65–82; PULSE 67–83; RESP 18–21; TEMP 97.5–98.3; O2SAT 97–100
[2023-05-20] MEDS: ACCU-CHEK COMFORT CURVE STRIP VI SCH ×2 (06:41→11:17)
[2023-05-20] MEDS: InsuLIN REG 1unit/0.01ml Soln (100units/ml) SC SCH ×2 (06:42→11:18)
[2023-05-20] MEDS: SODIUM CHLOR 0.9% PF (SALINE LOCK) 10ML VIAL/SYR IV SCH ×2 (06:44→15:30)
[2023-05-20 07:00] LABS: Anion Gap 6.1 (5-15); Basophils # (auto) 0 10 ^3/uL (0-0.2); Basophils % (auto) 0.3 % (0.0-2.0); Carbon Dioxide 25.9 mmol/L (20-30); Chloride 107 mmol/L (98-107); Eosinophils # (auto) 0 10 ^3/uL (0-0.8); Hematocrit 29.1 % (36.0-46.0); Hemoglobin 9.3 g/dL (12.2-16.2); Lymphocytes # (auto) 1.5 10 ^3/uL (0.4-5.4); Lymphocytes % (auto) 14.3 % (10.0-50.0); Mean Corpuscular Hemoglobin 28.1 pg (28.0-32.0); Monocytes # (auto) 0.8 10 ^3/uL (0-1.3); Monocytes % (auto) 7.6 % (0.0-12.0); Neutrophils % (auto) 77.8 % (37.0-80.0); Potassium 4.2 mmol/L (3.5-5.1); Red Cell Distribution Width 15.5 % (11.8-14.3); Sodium 139 mmol/L (136-145); White Blood Cell 10.3 10^3/uL (4.4-10.8)
[2023-05-20 07:01] LABS: Calcium 8.9 mg/dL (8.7-10.4)
[2023-05-20 07:06] LABS: BUN/Creatinine Ratio 16.7 (10.0-20.0); Blood Urea Nitrogen 11 mg/dL (9-23); Glucose 212 mg/dL (74-106)
[2023-05-20] MEDS ORDERED: predniSONE 20 MG TAB PO SCH (10:00)
[2023-05-20] MEDS: GABAPENTIN 300 MG CAP PO SCH (10:45)
[2023-05-20] MEDS ORDERED: DEXTROSE (50%) 50ML SYRG IV PRN (13:00)
[2023-05-20] MEDS ORDERED: HYDR1TAB97 PO (14:56)
[2023-05-20] MEDS ORDERED: PRED20TA2 PO (14:56)
[2023-05-20] MEDS ORDERED: ACCU-CHEK COMFORT CURVE STRIP VI SCH (17:00)
[2023-05-20] MEDS ORDERED: InsuLIN REG 1unit/0.01ml Soln (100units/ml) SC SCH ×2 (17:00→22:00)
== END 2023-05-20 17:54 | disposition home or self-care (01) | DRG 206 ==
LOC: ER 12:16 → TELE 16:31 → TELE-CENTR 05-16 15:56 → CENTRAL 05-17 03:06
PROVIDERS: ADMIT Internal Medicine; ATTEND Student in an Organized Health Care Education/Training Program
DX: J70.0 Acute pulmonary manifestations due to radiation (principal); E87.20 Acidosis, unspecified; C34.90 Malignant neoplasm of unspecified part of unspecified bronchus or lung; E78.5 Hyperlipidemia, unspecified; I10 Essential (primary) hypertension; E11.9 Type 2 diabetes mellitus without complications; M89.8X9 Other specified disorders of bone, unspecified site; D64.9 Anemia, unspecified; Z20.822 Contact with and (suspected) exposure to COVID-19; Z85.3 Personal history of malignant neoplasm of breast; Z80.3 Family history of malignant neoplasm of breast; Z80.49 Family history of malignant neoplasm of other genital organs; Z82.0 Family history of epilepsy and other diseases of the nervous system; Z88.6 Allergy status to analgesic agent; Z90.13 Acquired absence of bilateral breasts and nipples; Z90.710 Acquired absence of both cervix and uterus; Z91.013 Allergy to seafood; Z92.21 Personal history of antineoplastic chemotherapy; Z92.3 Personal history of irradiation; Z83.3 Family history of diabetes mellitus; Z91.018 Allergy to other foods; Z17.1 Estrogen receptor negative status [ER-]
CPT/HCPCS: 36415; 71046; 71250; 78306; 80048; 80053; 81001; 82607; 82728; 82962; 83540; 83550; 83605; 83615; 83735; 83880; 84484; 85025; 85045; 86300; 87040; 87086; 87426; 93005; 93306; 96365; 96375; 97163; G0378; J0696; J1642; J1815; J2405

== ENCOUNTER → 2023-05-23 | Outpatient (CLI) | payer OTHER ==
[~2023-05-23] MED LIST changes: -HYDR-4902 PO; +HYDR1TAB97 PO; -LEVO750T8 PO; +PRED20TA2 PO
[2023-05-23 12:38] LABS: Basophils # (auto) 0 10 ^3/uL (0-0.2); Basophils % (auto) 0.4 % (0.0-2.0); Eosinophils # (auto) 0 10 ^3/uL (0-0.8); Eosinophils % (auto) 0.5 % (0.0-7.0); Hematocrit 31.8 % (36.0-46.0); Hemoglobin 10.4 g/dL (12.2-16.2); Mean Corpuscular Hemoglobin 28.7 pg (28.0-32.0); Mean Corpuscular Hgb Conc. 32.7 g/dL (32.0-36.0); Mean Corpuscular Volume 87.6 fL (80.0-100.0); Monocytes # (auto) 0.5 10 ^3/uL (0-1.3); Monocytes % (auto) 7.5 % (0.0-12.0); Neutrophils # (auto) 5.5 10 ^3/uL (1.6-8.6); Neutrophils % (auto) 77.6 % (37.0-80.0); Nucleated Red Blood Cells % 0.1 %; Red Blood Cells 3.63 10^6/uL (4.0-5.20); Red Cell Distribution Width 15.8 % (11.8-14.3); White Blood Cell 7.1 10^3/uL (4.4-10.8)
[2023-05-23 13:25] LABS: Alanine Aminotransferase 17 U/L (7-40); Albumin 4.3 g/dL (3.2-4.8); Alkaline Phosphatase 80 U/L (46-116); Anion Gap 6.5 (5-15); Aspartate Aminotransferase 15 U/L (13-40); Blood Urea Nitrogen 13 mg/dL (9-23); Calcium 9.6 mg/dL (8.7-10.4); Carbon Dioxide 26.5 mmol/L (20-30); Chloride 105 mmol/L (98-107); Cholesterol 114 mg/dL (< 200); Glucose 176 mg/dL (74-106); LDL Cholesterol 62 mg/dL (< 100); Potassium 4.5 mmol/L (3.5-5.1); Sodium 138 mmol/L (136-145); Triglycerides 104 mg/dL (< 150)
[2023-05-23 13:26] LABS: Total Protein 7.1 g/dL (5.7-8.2)
[2023-05-23 13:27] LABS: Folate (Folic Acid) 16.96 ng/mL (>5.38)
[2023-05-23 13:32] LABS: Urine Bacteria NONE SEEN /hpf (None Seen); Urine Blood Negative /uL (Negative); Urine Clarity Clear (Clear); Urine Color Yellow (Yellow); Urine Mucus FEW (None Seen); Urine Protein, UAD Negative (Negative); Urine Specific Gravity 1.022 (1.001-1.035); Urine Urobilinogen Normal (Negative); Urine WBC 3 /hpf (0 - 5); Urine pH 5.5 (5.0-8.0)
[2023-05-23 13:37] LABS: Uric Acid 4.6 mg/dL (3.1-7.8)
[2023-05-23 13:40] LABS: HDL Cholesterol 47 mg/dL (40-59)
== END | disposition home or self-care (01) ==
LOC: LAB 12:21
PROVIDERS: ATTEND Internal Medicine
DX: R68.89 Other general symptoms and signs (principal); R73.09 Other abnormal glucose; E78.2 Mixed hyperlipidemia; E61.2 Magnesium deficiency; R94.6 Abnormal results of thyroid function studies; E79.0 Hyperuricemia without signs of inflammatory arthritis and tophaceous disease; E55.9 Vitamin D deficiency, unspecified; R82.90 Unspecified abnormal findings in urine; R82.79 Other abnormal findings on microbiological examination of urine; D51.9 Vitamin B12 deficiency anemia, unspecified
CPT/HCPCS: 36415; 80053; 80061; 81001; 82306; 82607; 82746; 83036; 83970; 84443; 84550; 85025; 87086

== ENCOUNTER → 2023-06-02 | Outpatient (CLI) | payer OTHER ==
[2023-06-02 10:18] LABS: Basophils # (auto) 0 10 ^3/uL (0-0.2); Basophils % (auto) 0.3 % (0.0-2.0); Eosinophils # (auto) 0 10 ^3/uL (0-0.8); Eosinophils % (auto) 0.2 % (0.0-7.0); Hematocrit 33.2 % (36.0-46.0); Hemoglobin 10.7 g/dL (12.2-16.2); Lymphocytes # (auto) 1.3 10 ^3/uL (0.4-5.4); Lymphocytes % (auto) 15.9 % (10.0-50.0); Mean Corpuscular Hemoglobin 28.4 pg (28.0-32.0); Mean Corpuscular Hgb Conc. 32.2 g/dL (32.0-36.0); Mean Corpuscular Volume 88.3 fL (80.0-100.0); Monocytes # (auto) 0.7 10 ^3/uL (0-1.3); Monocytes % (auto) 8.9 % (0.0-12.0); Neutrophils # (auto) 5.9 10 ^3/uL (1.6-8.6); Neutrophils % (auto) 74.7 % (37.0-80.0); Nucleated Red Blood Cells % 0.1 %; Red Blood Cells 3.76 10^6/uL (4.0-5.20); Red Cell Distribution Width 16.1 % (11.8-14.3); White Blood Cell 7.9 10^3/uL (4.4-10.8)
[2023-06-02 11:10] LABS: % Iron Saturation 12.4 % (15-50); Ferritin 3.9 ng/mL (10-291)
[2023-06-02 11:12] LABS: Alanine Aminotransferase 12 U/L (7-40); Alkaline Phosphatase 69 U/L (46-116); Anion Gap 7.9 (5-15); BUN/Creatinine Ratio 20.2 (10.0-20.0); Blood Urea Nitrogen 17 mg/dL (9-23); Calcium 9.6 mg/dL (8.5-10.1); Carbon Dioxide 27.1 mmol/L (20-30); Chloride 104 mmol/L (98-107); Folate (Folic Acid) 14.38 ng/mL (>5.38); Glucose 150 mg/dL (74-106); Potassium 4.1 mmol/L (3.5-5.1); Sodium 139 mmol/L (136-145)
[2023-06-02 11:13] LABS: Aspartate Aminotransferase 11 U/L (13-40)
[2023-06-02 11:14] LABS: Albumin 4.5 g/dL (3.2-4.8); Bilirubin, Total 0.7 mg/dL (0.2-1.0); Total Protein 6.9 g/dL (5.7-8.2)
== END | disposition home or self-care (01) ==
LOC: LAB 09:56
PROVIDERS: ATTEND Internal Medicine
DX: C50.911 Malignant neoplasm of unspecified site of right female breast (principal)
CPT/HCPCS: 36415; 80053; 82607; 82728; 82746; 83540; 83550; 83615; 85025; 86300

== ENCOUNTER 2023-07-12 13:39 | Emergency (ER) | payer OTHER ==
[~2023-07-12] VITALS: Ht 157.5 cm; Wt 50.0 kg
[2023-07-12 14:05] LABS: Basophils # (auto) 0.1 10 ^3/uL (0-0.2); Basophils % (auto) 0.6 % (0.0-2.0); Eosinophils # (auto) 0 10 ^3/uL (0-0.8); Eosinophils % (auto) 0.1 % (0.0-7.0); Hematocrit 33.4 % (36.0-46.0); Hemoglobin 10.8 g/dL (12.2-16.2); Lymphocytes # (auto) 1.1 10 ^3/uL (0.4-5.4); Lymphocytes % (auto) 12.8 % (10.0-50.0); Mean Corpuscular Hemoglobin 28.1 pg (28.0-32.0); Mean Corpuscular Hgb Conc. 32.2 g/dL (32.0-36.0); Mean Corpuscular Volume 87.1 fL (80.0-100.0); Monocytes # (auto) 1.1 10 ^3/uL (0-1.3); Monocytes % (auto) 13.3 % (0.0-12.0); Neutrophils # (auto) 6.1 10 ^3/uL (1.6-8.6); Neutrophils % (auto) 73.2 % (37.0-80.0); Red Blood Cells 3.83 10^6/uL (4.0-5.20); Red Cell Distribution Width 15.4 % (11.8-14.3); White Blood Cell 8.3 10^3/uL (4.4-10.8)
[2023-07-12 14:28] LABS: Alanine Aminotransferase 13 U/L (7-40); Albumin 4.5 g/dL (3.2-4.8); Alkaline Phosphatase 78 U/L (46-116); Anion Gap 10 (5-15); Aspartate Aminotransferase 20 U/L (13-40); BUN/Creatinine Ratio 14.7 (10.0-20.0); Bilirubin, Total 0.6 mg/dL (0.2-1.0); Blood Urea Nitrogen 15 mg/dL (9-23); Calcium 9.2 mg/dL (8.7-10.4); Carbon Dioxide 24 mmol/L (20-30); Chloride 100 mmol/L (98-107); Sodium 134 mmol/L (136-145)
[2023-07-12 15:51] LABS: COVID19 ANTIGEN SOFIA FIA NEGATIVE (NEGATIVE)
[2023-07-12] MEDS ORDERED: SODIUM CHLORIDE 0.9% 1,000 ML IV ONE (21:15)
[2023-07-12 23:48] VITALS: BP 114/67; PULSE 87; RESP 20; TEMP 98.5; O2SAT 98
== END 2023-07-12 23:53 | disposition still patient (30) ==
LOC: ER 13:39
DX: R06.02 Shortness of breath (principal); E11.9 Type 2 diabetes mellitus without complications; E78.5 Hyperlipidemia, unspecified; I10 Essential (primary) hypertension; Z88.5 Allergy status to narcotic agent; Z88.8 Allergy status to other drugs, medicaments and biological substances; Z79.899 Other long term (current) drug therapy; Z90.710 Acquired absence of both cervix and uterus; Z98.890 Other specified postprocedural states; Z20.822 Contact with and (suspected) exposure to COVID-19
CPT/HCPCS: 36415; 71046; 71275; 80053; 83880; 84484; 85025; 85379; 87426; 93005; 96360; 99285; J7030

== ENCOUNTER → 2023-08-08 | Outpatient (CLI) | payer OTHER ==
[2023-08-08 08:36] LABS: Basophils # (auto) 0 10 ^3/uL (0-0.2); Basophils % (auto) 0.6 % (0.0-2.0); Eosinophils # (auto) 0.1 10 ^3/uL (0-0.8); Eosinophils % (auto) 1.9 % (0.0-7.0); Hemoglobin 10.8 g/dL (12.2-16.2); Lymphocytes % (auto) 17.4 % (10.0-50.0); Mean Corpuscular Hemoglobin 27.5 pg (28.0-32.0); Mean Corpuscular Hgb Conc. 31.8 g/dL (32.0-36.0); Mean Corpuscular Volume 86.4 fL (80.0-100.0); Monocytes # (auto) 0.5 10 ^3/uL (0-1.3); Monocytes % (auto) 9.1 % (0.0-12.0); Neutrophils # (auto) 4.2 10 ^3/uL (1.6-8.6); Red Blood Cells 3.94 10^6/uL (4.0-5.20); Red Cell Distribution Width 15.8 % (11.8-14.3)
[2023-08-08 09:11] LABS: Urine Bacteria NONE SEEN /hpf (None Seen); Urine Blood Negative /uL (Negative); Urine Clarity Clear (Clear); Urine Color Yellow (Yellow); Urine Protein, UAD Negative (Negative); Urine Specific Gravity 1.013 (1.001-1.035); Urine Urobilinogen Normal (Negative); Urine WBC 2 /hpf (0 - 5)
[2023-08-08 09:14] LABS: Alanine Aminotransferase 11 U/L (7-40); Albumin 4.7 g/dL (3.2-4.8); Alkaline Phosphatase 75 U/L (46-116); Anion Gap 7 (5-15); Aspartate Aminotransferase 20 U/L (13-40); BUN/Creatinine Ratio 14.3 (10.0-20.0); Blood Urea Nitrogen 11 mg/dL (9-23); Calcium 10.1 mg/dL (8.5-10.1); Carbon Dioxide 28 mmol/L (20-30); Chloride 105 mmol/L (98-107); Glucose 178 mg/dL (74-106); LDL Cholesterol 72 mg/dL (< 100); Potassium 4.5 mmol/L (3.5-5.1); Sodium 140 mmol/L (136-145); Triglycerides 120 mg/dL (< 150)
[2023-08-08 09:15] LABS: Bilirubin, Total 0.7 mg/dL (0.2-1.0); Cholesterol 134 mg/dL (< 200); HDL Cholesterol 42 mg/dL (40-59); Total Protein 7.5 g/dL (5.7-8.2)
[2023-08-08 09:41] LABS: Magnesium 1.5 mg/dL (1.6-2.6)
[2023-08-08 09:42] LABS: Uric Acid 4.3 mg/dL (3.1-7.8)
[2023-08-08 14:04] LABS: Folate (Folic Acid) 16.29 ng/mL (>5.38)
== END | disposition home or self-care (01) ==
LOC: LAB 08:18
PROVIDERS: ATTEND Internal Medicine
DX: E61.2 Magnesium deficiency (principal); R78.89 Finding of other specified substances, not normally found in blood; E78.41 Elevated Lipoprotein(a); R68.89 Other general symptoms and signs; R94.6 Abnormal results of thyroid function studies; E79.0 Hyperuricemia without signs of inflammatory arthritis and tophaceous disease; E85.9 Amyloidosis, unspecified; R82.79 Other abnormal findings on microbiological examination of urine; R82.991 Hypocitraturia; R82.90 Unspecified abnormal findings in urine; D51.9 Vitamin B12 deficiency anemia, unspecified
CPT/HCPCS: 36415; 80053; 80061; 81001; 82306; 82607; 82746; 83036; 83735; 84443; 84550; 85025; 87086

== ENCOUNTER → 2023-08-10 | Outpatient (CLI) | payer OTHER ==
[~2023-08-10] MED LIST changes: +ALBUTEROL MEDNEB 2.5 mg/3ml NEB ONE
== END | disposition home or self-care (01) ==
LOC: RT 10:54
PROVIDERS: ATTEND Internal Medicine Pulmonary Disease
DX: J70.0 Acute pulmonary manifestations due to radiation (principal); R06.02 Shortness of breath; R06.09 Other forms of dyspnea
CPT/HCPCS: 94060; 94727; 94729

== ENCOUNTER → 2023-08-30 | Outpatient (CLI) | payer OTHER ==
[~2023-08-30] MED LIST changes: -ALBUTEROL MEDNEB 2.5 mg/3ml NEB ONE
[2023-08-30 10:56] LABS: Basophils # (auto) 0.1 10 ^3/uL (0-0.2); Basophils % (auto) 0.8 % (0.0-2.0); Eosinophils # (auto) 0.2 10 ^3/uL (0-0.8); Eosinophils % (auto) 2.6 % (0.0-7.0); Hemoglobin 10.2 g/dL (12.2-16.2); Lymphocytes # (auto) 1.2 10 ^3/uL (0.4-5.4); Lymphocytes % (auto) 17.3 % (10.0-50.0); Mean Corpuscular Hemoglobin 28.3 pg (28.0-32.0); Mean Corpuscular Volume 85.8 fL (80.0-100.0); Monocytes # (auto) 0.4 10 ^3/uL (0-1.3); Monocytes % (auto) 6.4 % (0.0-12.0); Neutrophils % (auto) 72.9 % (37.0-80.0); Red Blood Cells 3.61 10^6/uL (4.0-5.20); Red Cell Distribution Width 16.4 % (11.8-14.3); White Blood Cell 6.9 10^3/uL (4.4-10.8)
[2023-08-30 11:51] LABS: Alanine Aminotransferase 13 U/L (7-40); Albumin 4.7 g/dL (3.2-4.8); Alkaline Phosphatase 91 U/L (46-116); Anion Gap 7 (5-15); Aspartate Aminotransferase 24 U/L (13-40); BUN/Creatinine Ratio 19.7 (10.0-20.0); Blood Urea Nitrogen 13 mg/dL (9-23); Calcium 9.8 mg/dL (8.5-10.1); Carbon Dioxide 27 mmol/L (20-30); Chloride 106 mmol/L (98-107); Glucose 141 mg/dL (74-106); Potassium 4.3 mmol/L (3.5-5.1); Sodium 140 mmol/L (136-145)
[2023-08-30 11:52] LABS: Bilirubin, Total 0.6 mg/dL (0.2-1.0); Total Protein 7.3 g/dL (5.7-8.2)
[2023-08-30 11:58] LABS: % Iron Saturation 10.2 % (15-50)
== END | disposition home or self-care (01) ==
LOC: LAB 09:36
PROVIDERS: ATTEND Internal Medicine
DX: C50.911 Malignant neoplasm of unspecified site of right female breast (principal); Z88.8 Allergy status to other drugs, medicaments and biological substances
CPT/HCPCS: 36415; 80053; 82728; 83540; 83550; 85025; 85049; 86300

== ENCOUNTER → 2023-10-27 | Outpatient (CLI) | payer OTHER ==
[2023-10-27 09:31] LABS: Basophils # (auto) 0 10 ^3/uL (0-0.2); Basophils % (auto) 0.8 % (0.0-2.0); Eosinophils # (auto) 0.2 10 ^3/uL (0-0.8); Hematocrit 32.5 % (36.0-46.0); Hemoglobin 10.5 g/dL (12.2-16.2); Lymphocytes # (auto) 1.4 10 ^3/uL (0.4-5.4); Lymphocytes % (auto) 24.8 % (10.0-50.0); Mean Corpuscular Hemoglobin 28.3 pg (28.0-32.0); Mean Corpuscular Hgb Conc. 32.4 g/dL (32.0-36.0); Mean Corpuscular Volume 87.3 fL (80.0-100.0); Monocytes # (auto) 0.5 10 ^3/uL (0-1.3); Monocytes % (auto) 8.6 % (0.0-12.0); Neutrophils # (auto) 3.5 10 ^3/uL (1.6-8.6); Neutrophils % (auto) 62.8 % (37.0-80.0); Nucleated Red Blood Cells % 0.1 %; Red Blood Cells 3.73 10^6/uL (4.0-5.20); Red Cell Distribution Width 17.3 % (11.8-14.3); White Blood Cell 5.5 10^3/uL (4.4-10.8)
[2023-10-27 10:01] LABS: Urine Bacteria NONE SEEN /hpf (None Seen); Urine Blood Negative /uL (Negative); Urine Clarity Clear (Clear); Urine Color Yellow (Yellow); Urine Protein, UAD Negative (Negative); Urine Specific Gravity 1.017 (1.001-1.035); Urine Urobilinogen Normal (Negative); Urine WBC 2 /hpf (0 - 5); Urine pH 5.5 (5.0-8.0)
[2023-10-27 10:26] LABS: Alanine Aminotransferase 11 U/L (7-40); Albumin 4.6 g/dL (3.2-4.8); Alkaline Phosphatase 72 U/L (46-116); Anion Gap 7 (5-15); Aspartate Aminotransferase 22 U/L (13-40); BUN/Creatinine Ratio 14.9 (10.0-20.0); Blood Urea Nitrogen 11 mg/dL (9-23); Calcium 9.9 mg/dL (8.5-10.1); Carbon Dioxide 26 mmol/L (20-30); Chloride 106 mmol/L (98-107); Glucose 132 mg/dL (74-106); LDL Cholesterol 58 mg/dL (< 100); Potassium 4.2 mmol/L (3.5-5.1); Sodium 139 mmol/L (136-145); Triglycerides 62 mg/dL (< 150)
[2023-10-27 10:27] LABS: Bilirubin, Total 0.6 mg/dL (0.2-1.0); Cholesterol 118 mg/dL (< 200); HDL Cholesterol 47 mg/dL (40-59); Total Protein 7.3 g/dL (5.7-8.2)
[2023-10-27 10:43] LABS: Folate (Folic Acid) 20.33 ng/mL (>5.38)
[2023-10-27 10:53] LABS: Magnesium 1.5 mg/dL (1.6-2.6); Uric Acid 3.6 mg/dL (3.1-7.8)
== END | disposition home or self-care (01) ==
LOC: LAB 09:12
PROVIDERS: ATTEND Internal Medicine
DX: R79.89 Other specified abnormal findings of blood chemistry (principal); E78.9 Disorder of lipoprotein metabolism, unspecified; R68.89 Other general symptoms and signs; R73.09 Other abnormal glucose
CPT/HCPCS: 36415; 80053; 80061; 81001; 82306; 82607; 82746; 83036; 83735; 84443; 84550; 85025; 87086

== ENCOUNTER → 2023-12-12 | Outpatient (CLI) | payer OTHER | END | disposition home or self-care (01) | LOC: LAB 12:42 | PROVIDERS: ATTEND Internal Medicine | DX: Z12.11 Encounter for screening for malignant neoplasm of colon (principal) | CPT/HCPCS: 82270 ==

== ENCOUNTER → 2024-06-27 | Outpatient (CLI) | payer OTHER ==
[2024-06-27 10:27] LABS: Basophils # (auto) 0.1 10 ^3/uL (0-0.2); Basophils % (auto) 0.8 % (0.0-2.0); Eosinophils # (auto) 0.1 10 ^3/uL (0-0.8); Eosinophils % (auto) 1.5 % (0.0-7.0); Hematocrit 36.6 % (36.0-46.0); Hemoglobin 12.6 g/dL (12.2-16.2); Lymphocytes # (auto) 1.2 10 ^3/uL (0.4-5.4); Lymphocytes % (auto) 17.9 % (10.0-50.0); Mean Corpuscular Hemoglobin 32.4 pg (28.0-32.0); Mean Corpuscular Hgb Conc. 34.4 g/dL (32.0-36.0); Mean Corpuscular Volume 94.2 fL (80.0-100.0); Monocytes # (auto) 0.5 10 ^3/uL (0-1.3); Monocytes % (auto) 7.6 % (0.0-12.0); Neutrophils % (auto) 72.2 % (37.0-80.0); Platelet Count (auto) 269 10^3/uL (140-450); Red Blood Cells 3.89 10^6/uL (4.0-5.20); Red Cell Distribution Width 12.8 % (11.8-14.3); White Blood Cell 6.9 10^3/uL (4.4-10.8)
[2024-06-27 10:55] LABS: Alanine Aminotransferase 15 U/L (7-40); Albumin 4.6 g/dL (3.2-4.8); Alkaline Phosphatase 82 U/L (46-116); Anion Gap 8 (5-15); Aspartate Aminotransferase 21 U/L (13-40); BUN/Creatinine Ratio 13.8 (10.0-20.0); Bilirubin, Total 0.9 mg/dL (0.2-1.0); Blood Urea Nitrogen 11 mg/dL (9-23); Calcium 10.2 mg/dL (8.7-10.4); Carbon Dioxide 28 mmol/L (20-31); Chloride 105 mmol/L (98-107); Glucose 151 mg/dL (74-106); Potassium 4.4 mmol/L (3.5-5.1); Sodium 141 mmol/L (136-145); Total Protein 7.4 g/dL (5.7-8.2)
== END | disposition home or self-care (01) ==
LOC: LAB 09:41
PROVIDERS: ATTEND Internal Medicine
DX: C50.911 Malignant neoplasm of unspecified site of right female breast (principal); D50.9 Iron deficiency anemia, unspecified
CPT/HCPCS: 36415; 80053; 83615; 85025; 86300

== ENCOUNTER 2024-07-29 19:01 | Inpatient (IN) | payer OTHER ==
[~2024-07-29] VITALS: Ht 129.5 cm; Wt 62.8 kg
[2024-07-29 21:00] VITALS: BP 100/58; PULSE 81; RESP 16; TEMP 98.6; O2SAT 99
[2024-07-29] MEDS ORDERED: InsuLIN REG 1unit/0.01ml Soln (100units/ml) SC SCH (22:00)
[2024-07-29] MEDS ORDERED: ONDANSETRON HCL 4 MG/2 ML VIAL IV PRN (22:00)
[2024-07-29] MEDS ORDERED: ACETAMINOPHEN 325 MG TAB PO PRN (22:00)
[2024-07-29] MEDS ORDERED: ATORVASTATIN 20 MG TAB PO SCH (22:00)
[2024-07-29] MEDS ORDERED: DEXTROSE (50%) 50ML SYRG IV PRN (22:00)
[2024-07-29] MEDS ORDERED: ACCU-CHEK COMFORT CURVE STRIP VI SCH (22:00)
[2024-07-30 00:06] LABS: Urine Bacteria FEW /hpf (None Seen); Urine Blood Negative /uL (Negative); Urine Clarity Clear (Clear); Urine Color Light-Yellow (Yellow); Urine Protein, UAD Negative (Negative); Urine Specific Gravity 1.015 (1.001-1.035); Urine Urobilinogen Normal (Negative); Urine WBC 2 /hpf (0 - 5)
--- NOTE | 2024-07-30 00:22 | DVHHP2 ---
History of Present Illness Reason for Visit: Back pain History of Present Illness 68 year female being transferred [facility] continuity of care and disposition. Patient presented to outside facility with complaints of a two day history of lower back pain. Patient reports sudden onset of lower back pain that radiates to her lower abdomen. Denies dysuria or hematuria. She states the pain was so severe that she was having difficulty ambulating. Denies numbness or tingling sensation. Denies urinary or bowel incontinence. No other acute complaints reported. Past Medical History Hypertension, dyslipidemia, diabetes mellitus, mi, cancer Past Surgical History Bilateral mastectomy Family History Noncontributory Smoke: No ALCOHOL: none Drugs: None Lives: with Family Review of Systems Review of Systems Review of systems currently negative otherwise addressed HPI Allergies: Coded Allergies: Beef Allergy (Verified Allergy, Intermediate, 01/18/23) Ibuprofen (Verified Allergy, Intermediate, VOMITING GI UPSET , 08/22/22) Uncoded Allergies: seafood (Allergy, Intermediate, 01/18/23) Medications Current Medications Medications Dose Ordered Sig/Ananda Route Start Time Stop Time Status Last Admin Dose Admin Losartan Potassium 25 mg DAILY PO 07/30/24 10:00 UNV Gabapentin 300 mg DAILY PO 07/30/24 10:00 UNV Atorvastatin Calcium 20 mg HS PO 07/29/24 22:00 UNV Duloxetine HCl 60 mg DAILY PO 07/30/24 10:00 UNV Ceftriaxone Sodium 50 ml @ 100 mls/hr DAILY@09 IV 07/30/24 09:00 UNV Diagnostic Test (Pha) 1 strip ACHS 07/29/24 22:00 UNV Insulin Human Regular ACHS SC 07/29/24 22:00 UNV Dextrose 50 ml UD PRN IV 07/29/24 22:00 UNV Acetaminophen/ Hydrocodone Bitart 1 tab Q4HP PRN PO 07/29/24 22:00 UNV Ondansetron HCl 4 mg Q4HP PRN IV 07/29/24 22:00 UNV Acetaminophen 650 mg Q6HP PRN PO 07/29/24 22:00 UNV Morphine Sulfate 2 mg Q8HPRN PRN IV 07/29/24 22:00 UNV Exam Vital Signs Vital Signs Date Time Temp Pulse Resp B/P (MAP) Pulse Ox O2 Delivery O2 Flow Rate FiO2 07/29/24 21:00 98.6 81 16 100/58 (72) 99 98.6 Exam Gen: 67-year-old female in no apparent distress Skin: Warm, dry, normal color and texture, no rash. HEENT: Normocephalic atraumatic, mucous membranes moist and pink. Neck: Cervical and supraclavicular nodes normal without enlargement, trachea is midline, thyroid gland is normal without masses. Pulmonary: Clear to auscultation and percussion bilaterally. Cardiac: Regular rate and rhythm. No murmur Abdomen: Soft, nontender, nondistended, bowel sounds present all 4 quadrants, no guarding, no rigidity, no organomegaly. Extremities: No cyanosis, clubbing, no edema Neuro: Cranial nerves II through XII grossly intact, normal affect and speech, no focal motor deficits. Labs/Xrays Labs Test 07/29/24 23:30 Range/Units Urine Color Light-yellow Yellow Urine Clarity Clear Clear Urine pH 6.0 5.0-9.0 Urine Specific [place] 1.015 1.001-1.035 Urine Protein Negative Negative Urine Ketones 1+ H Negative Urine Blood Negative Negative /uL Urine Nitrite Negative Negative Urine Bilirubin Negative Negative Urine Urobilinogen Normal Negative mg/dL Urine Leukocyte Esterase Trace Negative /uL Urine RBC 1 0 - 4 /hpf Urine WBC 2 0 - 5 /hpf Urine Squamous Epithelial Cells Few <5 /hpf Urine Bacteria Few H None Seen /hpf Urine Glucose 3+ H Normal mg/dL CT from outside facility negative for acute pathology Assessment/Plan Assessment/Plan Assessment Complicated UTI,? Pyelonephritis Intractable lower back pain Diabetes mellitus Hypertension [place] [facility] [place] Urine bacterial culture pending Resume home medications. Pain management Continue treatment per orders. Plan discussed with: Patient My Orders Orders - [facility] Procedure Category Date Status Time Urine Bacterial MARITZA 07/29/24 Uncollected Culture 21:52 Urinalysis LAB 07/29/24 Uncollected 21:52 Consistent DIET 07/30/24 Transmitted Carb(Ccho)Diabetes Breakfast Losartan Tablet PHA 07/30/24 Logged (Cozaar Tablet) 10:00 Gabapentin Capsule PHA 07/30/24 Logged (Neurontin Capsule) 10:00 Atorvastatin (Lipitor) PHA 07/29/24 Logged 22:00 Duloxetine Hcl PHA 07/30/24 Logged Capsule (Cymbalta 10:00 Ceftriaxone 1gm/50ml PHA 07/30/24 Logged D5w (Rocephin) 09:00 Complete Blood Count LAB 07/29/24 Logged 21:52 Basic Metabolic Panel LAB 07/29/24 Logged 21:52 Glucose Blood PHA 07/29/24 Logged (Accu-Chek Comfort 22:00 Insulin R (Human) PHA 07/29/24 Logged (Insulin R) 22:00 Dextrose 50% Syringe PHA 07/29/24 Logged 22:00 Admit ADMIT 07/29/24 Transmitted 21:52 Hydrocodone-Acet PHA 07/29/24 Logged 5/325mg Tab (Callahan 22:00 Ondansetron Hcl PHA 07/29/24 Logged (Zofran) 22:00 Condition: Stable YASIR 07/29/24 In Process 21:52 Acetaminophen Tablet PHA 07/29/24 Logged (Tylenol Tablet) 22:00 Bedrest With Bathroom YASIR 07/29/24 In Process Privileg 21:52 Morphine Sulfate PHA 07/29/24 Logged Injection 22:00 Date of Service: Jul 29, 2024 Billing Provider: SHEFALI COX Common Visit Codes: [id number] INP/OBS CARE (HIGH) SHEFALI COX Jul 30, 2024 00:22
[2024-07-30 01:00] VITALS: BP 101/60; PULSE 80; RESP 16; TEMP 98.6; O2SAT 100
[2024-07-30] MEDS: HYDROcodone-ACET 5/325MG TAB PO PRN (04:57)
[2024-07-30 05:00] VITALS: BP 104/62; PULSE 76; RESP 16; TEMP 98.4; O2SAT 98
[2024-07-30] MEDS: ACCU-CHEK COMFORT CURVE STRIP VI SCH ×2 (05:42→11:00)
[2024-07-30] MEDS: MORPHINE SULFATE INJ 2 MG/ml SYRG IV PRN (05:43)
[2024-07-30] MEDS: InsuLIN REG 1unit/0.01ml Soln (100units/ml) SC SCH ×2 (06:20→12:47)
[2024-07-30 07:20] LABS: Basophils # (auto) 0 10 ^3/uL (0-0.2); Basophils % (auto) 0.2 % (0.0-2.0); Eosinophils # (auto) 0 10 ^3/uL (0-0.8); Eosinophils % (auto) 0.1 % (0.0-7.0); Hematocrit 34.2 % (36.0-46.0); Hemoglobin 11.7 g/dL (12.2-16.2); Lymphocytes # (auto) 1.4 10 ^3/uL (0.4-5.4); Lymphocytes % (auto) 14.2 % (10.0-50.0); Mean Corpuscular Hemoglobin 31.7 pg (28.0-32.0); Mean Corpuscular Hgb Conc. 34.1 g/dL (32.0-36.0); Mean Corpuscular Volume 92.9 fL (80.0-100.0); Monocytes # (auto) 0.7 10 ^3/uL (0-1.3); Monocytes % (auto) 7.5 % (0.0-12.0); Neutrophils # (auto) 7.5 10 ^3/uL (1.6-8.6); Nucleated Red Blood Cells % 0.1 %; Platelet Count (auto) 235 10^3/uL (140-450); Red Blood Cells 3.69 10^6/uL (4.0-5.20); Red Cell Distribution Width 13.6 % (11.8-14.3); White Blood Cell 9.6 10^3/uL (4.4-10.8)
[2024-07-30 07:31] LABS: Chloride 107 mmol/L (98-107); Potassium 4.5 mmol/L (3.5-5.1); Sodium 140 mmol/L (136-145)
[2024-07-30 07:32] LABS: Anion Gap 6 (5-15); Calcium 9.3 mg/dL (8.7-10.4); Carbon Dioxide 27 mmol/L (20-31)
[2024-07-30 07:37] LABS: BUN/Creatinine Ratio 16.3 (10.0-20.0); Blood Urea Nitrogen 13 mg/dL (9-23); Glucose 165 mg/dL (74-106)
[2024-07-30 08:27] LABS: Bilirubin, Direct 0.2 mg/dL (<0.3)
[2024-07-30 08:28] LABS: Bilirubin, Total 0.6 mg/dL (0.2-1.0); Total Protein 6.6 g/dL (5.7-8.2)
[2024-07-30 09:00] VITALS: BP 113/74; PULSE 64; RESP 17; TEMP 97.5; O2SAT 100
[2024-07-30 10:23] LABS: INR 1.08 (0.9-1.15); Partial Thromboplastin Time 26.3 SEC (24.5-34.5); Prothrombin Time 11.4 sec (9.3-11.8)
[2024-07-30] MEDS: cefTRIAXone 1GM/50ML D5W 50 ML IV SCH (10:56)
[2024-07-30] MEDS: LOSARTAN POTASSIUM 25 MG TAB PO SCH (10:57)
[2024-07-30] MEDS: GABAPENTIN 300 MG CAP PO SCH (10:57)
[2024-07-30] MEDS: DULoxetine HCL 30 MG CAP PO SCH (10:57)
[2024-07-30] MEDS ORDERED: DEXTROSE (50%) 50ML SYRG IV PRN (11:00)
--- NOTE | 2024-07-30 12:11 | DVHPNRES ---
Progress Note Date Seen: Jul 30, 2024 Resident Creating Document: ROLDAN LEY RESIDENT Has the PT tested + for MRSA If YES, has PT been informed?: No Medical Necessity Reason Pt with a Central, PICC or Fol: No Subjective Review of Systems This is a 68-year-old female patient with PMHx of bilateral triple negative breast cancer status post right mastectomy 2011 and left mastectomy September 2019-last chemotherapy 01/16, last radiotherapy 04/17, history of questionable pituitary adenoma, history of radiation pneumonitis, diabetes mellitus type 2 for the past 16 years, dyslipidemia, hypertension and osteopenia who was transferred from [facility] where she presented with the chief complaint of abdominal and back pain, inability to make urine. Patient reports that on 07/28 afternoon she started to experience lower abdominal pain which was crampy in nature and gradually worsening, she was unable to urinate and would experienced dysuria and urgency on urinating. She reports that she could not even walk because of the abdominal pain in the back pain. Associated symptoms include nausea and chills but no vomiting but no fever. She reports weight loss of about 3-4 lb in the past month. Also reports low appetite. She reports that this is the 1st time she is experiencing these symptoms. During the hospital stay at [facility], a UA was completed which showed moderate leukocyte esterase, nitrite negative, trace bacteria for which she was receiving ceftriaxone IV [address] lumbar spine was completed which showed no evidence of lumbar fracture, degenerative changes in the sacroiliac joint, multilevel lumbar spondylosis and lower degenerative facet Bilateral nephrolithiasis was seen. A CT scan of the abdomen pelvis was completed at [facility] which showed no nephrolithiasis and no acute abdominopelvic abnormality. Past surgical history Complete hysterectomy 2016, bilateral [id number]-[id number] in 2011, left-sided in 2021 Social history Lives with Never smoked, drinks socially, denies illicit drug use Home medications: Metformin 1000 mg b.i.d., albuterol inhaler, atorvastatin 20 mg, famotidine 20 mg b.i.d., gabapentin 300 mg HS Patient seen and examined in bed 251. Reports severe pain on sitting upright or on ambulating. Physical therapy consulted. Objective vital signs Vital Sign Date Time Temp Pulse Resp B/P (MAP) Pulse Ox O2 Delivery O2 Flow Rate FiO2 07/30/24 10:57 113/72 07/30/24 09:00 97.5 64 17 100 97.5 07/29/24 20:00 Room Air* 0 21 Total Intake and Output 07/29/24 07/29/24 07/30/24 15:00 23:00 07:00 Intake Total 320 ml Balance 320 ml medications Current Medications Medications Dose Ordered Sig/Ananda Route Start Time Stop Time Status Last Admin Dose Admin Losartan Potassium 25 mg DAILY PO 07/30/24 10:00 07/30/24 10:57 25 MG Gabapentin 300 mg DAILY PO 07/30/24 10:00 07/30/24 10:57 300 MG Duloxetine HCl 60 mg DAILY PO 07/30/24 10:00 07/30/24 10:57 60 MG Ceftriaxone Sodium 50 ml @ 100 mls/hr DAILY@09 IV 07/30/24 09:00 07/30/24 10:56 100 MLS/HR Acetaminophen/ Hydrocodone Bitart 1 tab Q4HP PRN PO 07/29/24 22:00 07/30/24 04:57 1 TAB Ondansetron HCl 4 mg Q4HP PRN IV 07/29/24 22:00 Acetaminophen 650 mg Q6HP PRN PO 07/29/24 22:00 Morphine Sulfate 2 mg Q8HPRN PRN IV 07/29/24 22:00 07/30/24 05:43 2 MG Atorvastatin Calcium 20 mg HS PO 07/30/24 22:00 Diagnostic Test (Pha) 1 strip Q6H 07/30/24 11:00 Insulin Human Regular IQ4HR SC 07/30/24 12:00 Dextrose 50 ml UD PRN IV 07/30/24 11:00 Examination Elderly female patient lying in bed, in no acute distress, well conversational General: Well-built, afebrile, palor, mucosae are moist. Has a lot of pain on sitting upright and postural changes. Cardiovascular: Regular S1 and S2. No murmurs, gallops or rubs. No JVD elevation. No pedal edema Respiratory: Normal B/L air entry on room air. Clear lung sounds on auscultation Abdomen: Soft, diffuse lower abdominal tenderness, nondistended, normoactive bowel sounds, no rebound tenderness, no organomegaly, no masses. Bilateral costovertebral angle tenderness. Genitourinary: Deferred MSK/skin: Mobilizes 4 limbs. Skin is dry and warm Neurological: No motor, no sensitive deficits, normal speech. Pupils are isocoric and reactive. Psych/Mental Status: A/Ox4 laboratory and microbiology Laboratory Tests 07/30/24 06:58 Test 07/30/24 06:58 Range/Units Serum Glucose 165 H 74-106 mg/dL Labs and/or images reviewed: Labs reviewed by me, Image(s) reviewed by me Problem List/Assessment/Plan Problem List/Assessment/Plan Acute complicated cystitis questionable bilateral pyelonephritis Patient has bilateral costovertebral angle tenderness. UA [facility] showed moderate leukocyte esterase, nitrite negative, trace bacteria for which she was receiving ceftriaxone IV [address] lumbar spine showed Bilateral nephrolithiasis. CT scan of the abdomen pelvis was completed at [facility] which showed no nephrolithiasis and no acute abdominopelvic abnormality. Continue IV ceftriaxone 1 g daily Urine bacterial culture pending Renal ultrasound: The right kidney measures 9.1 cm in length. The left kidney measures 9.0 cm. The kidneys demonstrate appropriate echotexture without evidence of a discrete renal lesion, nephrolithiasis or hydronephrosis. Degenerative spinal disease Multilevel lumbar spondylosis CT lumbar spine showed no evidence of lumbar fracture, degenerative changes in the sacroiliac joint, multilevel lumbar spondylosis and lower degenerative facet, Diabetes mellitus type 2 for the past 16 years-hemoglobin A1c 6.8 Initiated mild ISS Urine microalbumin pending Bilateral triple negative breast cancer status post right mastectomy 2011 and left mastectomy September 2019-last chemotherapy 01/16, last radiotherapy 04/[address] Sanabria Monitor Dyslipidemia Continue atorvastatin 20 mg p.o. Hypertension Continue losartan 25 mg daily Continue hydralazine IV 10 mg p.r.n. for SBP greater than 150 mmHg and pulse less than 90 BP Osteopenia Calcium and vitamin-D supplements History of questionable pituitary adenoma Outpatient workup advised History of radiation pneumonitis Outpatient workup advised Physical therapy evaluation pending Goals of care discussed with the patient for 20 minutes, DNR DNI Plan discussed with Dr. Lloyd Plan discussed with: Patient, Spouse, Other (RN) My Orders My Orders Orders - ROLDAN LEY Procedure Category Date Status Time Drug Screen LAB 07/30/24 Logged 07:02 Vitamin D, 25-Hydroxy LAB 07/30/24 In Process 07:02 Covid19 Antigen Rena LAB 07/30/24 Logged Code Status CODE 07/30/24 Transmitted 09:35 DNR YASIR 07/30/24 In Process 09:35 Pt Request For Service PT 07/30/24 Logged 09:44 Glucose Blood PHA 07/30/24 In Process (Accu-Chek Comfort 11:00 Insulin R (Human) PHA 07/30/24 In Process (Insulin R) 12:00 Dextrose 50% Syringe PHA 07/30/24 In Process 11:00 Kidney US 07/30/24 Logged 10:52 Addendum Addendum Addendum I was physically present for the dominique portions of the service provided to patient by THE RESIDENT. I have reviewed the documentation, discussed the case with resident and agree with the resident's documentation except as noted. Also the patient's clinical case was discussed with the patient's nurse. This medical document was created using an electronic medical record system with computerized dictation system. Although this document has been carefully reviewed, there might still be some phonetic and typographical errors. These areas are purely typographical due to imperfections of the software programs, and do not reflect any compromise in the patient's medical care. Late signature. Date of Service: Jul 30, 2024 Billing Provider: IMTIAZ LLOYD MD Common Visit Codes: [id number] INP/OBS CARE(HIGH) Secondary Visit Codes: [id number] CARE PLAN 30 MINUTES (20 minutes) ROLDAN LEY RESIDENT Jul 30, 2024 12:11 IMTIAZ LLOYD MD Jul 31, 2024 05:03
--- NOTE | 2024-07-30 12:50 | DVH ---
RENAL ULTRASOUND CLINICAL HISTORY: complicated uti TECHNIQUE: Multiple ultrasound images of the kidneys and bladder were obtained. COMPARISON: None FINDINGS: The right kidney measures 9.1 cm in length. The left kidney measures 9.0 cm. The kidneys demonstrate appropriate echotexture without evidence of a discrete renal lesion, nephrolithiasis or hydronephrosi s. Bladder prevoid volume measures 540 cc. The postvoid residual measures 254 cc. Bilateral ureteral j ets are seen. IMPRESSION: 1. Unremarkable renal ultrasound. 2. Moderate postvoid residual bladder. HS:Y
[2024-07-30 13:00] VITALS: BP 107/67; PULSE 64; RESP 18; TEMP 97.3; O2SAT 98
[2024-07-30] MEDS ORDERED: hydrALAZINE HCL 20 MG/ML VL IV PRN (14:00)
[2024-07-30] MEDS ORDERED: KETOROLAC TROMETH 30 MG/ML 1ML VIAL IV PRN (16:30)
[2024-07-30] MEDS ORDERED: MORPHINE SULFATE INJ 2 MG/ml SYRG IV PRN (16:30)
[2024-07-30] MEDS: CALCIUM W/VIT D (600MG/400IU) TAB PO ONE (16:34)
[2024-07-30] MEDS: BISACODYL 5 MG EC TAB PO ONE (16:34)
[2024-07-30] MEDS: POLYETHYLENE GLYCOL 17 GM PWDR PO ONE (16:35)
[2024-07-30 17:00] VITALS: BP 123/84; PULSE 84; RESP 20; TEMP 98.8; O2SAT 94
[2024-07-30 21:00] VITALS: BP 120/64; PULSE 73; TEMP 98.5; O2SAT 94
[2024-07-30] MEDS: ATORVASTATIN 20 MG TAB PO SCH (21:26)
[2024-07-30] MEDS: CALCIUM CARB 500 MG CHEW TAB PO PRN (22:00)
[2024-07-31] VITALS (7 sets, daily range): BP systolic 10–131; BP diastolic 61–77; PULSE 63–89; RESP 16–20; TEMP 97.9–98.4; O2SAT 94–98
[2024-07-31 05:19] LABS: COVID19 ANTIGEN SOFIA FIA NEGATIVE (NEGATIVE); Rapid Influenza A Negative (Negative); Rapid Influenza B Negative (Negative)
[2024-07-31] MEDS: POLYETHYLENE GLYCOL 17 GM PWDR PO SCH (08:02)
[2024-07-31] MEDS: CALCIUM W/VIT D (600MG/400IU) TAB PO SCH (08:03)
--- NOTE | 2024-07-31 12:47 | DVHDSRES ---
Discharge Summary Date of Admission Resident Creating Document: ROLDAN LEY RESIDENT Jul 29, 2024 at 19:01 Date of Discharge: Jul 31, 2024 Admitting Diagnosis Abdominal and back pain, inability to make urine Labs/Diagnostic Data: Laboratory Results Test 07/31/24 08:20 07/31/24 03:50 07/30/24 09:47 07/30/24 06:58 POC Glucose 116 mg/dl (70-106) Influenza Type A Antigen Negative (Negative) Influenza Type B Antigen Negative (Negative) SARS-CoV-2 Antigen (Rapid) Negative (NEGATIVE) Prothrombin Time 11.4 sec (9.3-11.8) Prothrombin Time INR 1.08 (0.9-1.15) Activated Partial Thromboplast Time 26.3 SEC (24.5-34.5) White Blood Count 9.6 10^3/uL (4.4-10.8) Red Blood Count 3.69 10^6/uL (4.0-5.20) Hemoglobin 11.7 g/dL (12.2-16.2) Hematocrit 34.2 % (36.0-46.0) Mean Corpuscular Volume 92.9 fL (80.0-100.0) Mean Corpuscular Hemoglobin 31.7 pg (28.0-32.0) Mean Corpuscular Hemoglobin Concent 34.1 g/dL (32.0-36.0) Red Cell Distribution Width 13.6 % (11.8-14.3) Platelet Count 235 10^3/uL (140-450) Mean Platelet Volume 7.3 fL (6.9-10.8) Neutrophils (%) (Auto) 78.0 % (37.0-80.0) Lymphocytes (%) (Auto) 14.2 % (10.0-50.0) Monocytes (%) (Auto) 7.5 % (0.0-12.0) Eosinophils (%) (Auto) 0.1 % (0.0-7.0) Basophils (%) (Auto) 0.2 % (0.0-2.0) Neutrophils # (Auto) 7.5 10 ^3/uL (1.6-8.6) Lymphocytes # (Auto) 1.4 10 ^3/uL (0.4-5.4) Monocytes # (Auto) 0.7 10 ^3/uL (0-1.3) Eosinophils # (Auto) 0 10 ^3/uL (0-0.8) Basophils # (Auto) 0 10 ^3/uL (0-0.2) Nucleated Red Blood Cells 0.1 % Sodium Level 140 mmol/L (136-145) Potassium Level 4.5 mmol/L (3.5-5.1) Chloride Level 107 mmol/L (98-107) Carbon Dioxide Level 27 mmol/L (20-31) Anion Gap 6 (5-15) Blood Urea Nitrogen 13 mg/dL (9-23) Creatinine 0.80 mg/dL (0.550-1.02) Glomerular Filtration Rate Calc 80 mL/min (>90) BUN/Creatinine Ratio 16.3 (10.0-20.0) Serum Glucose 165 mg/dL (74-106) Hemoglobin A1c 6.8 % A1C (<5.7) Calcium Level 9.3 mg/dL (8.7-10.4) Total Bilirubin 0.6 mg/dL (0.2-1.0) Direct Bilirubin 0.2 mg/dL (<0.3) Aspartate Amino Transferase (AST) 17 U/L (13-40) Alanine Aminotransferase (ALT) 12 U/L (7-40) Alkaline Phosphatase 62 U/L (46-116) Total Protein 6.6 g/dL (5.7-8.2) Albumin 4.0 g/dL (3.2-4.8) Vitamin B12 Level 600 pg/mL (211-911) Vitamin D 25-Hydroxy 70.1 ng/mL (30.0-100) Thyroid Stimulating Hormone (TSH) 0.62 uIU/mL (0.55-4.78) Test 07/29/24 23:30 Urine Color Light-yellow (Yellow) Urine Clarity Clear (Clear) Urine pH 6.0 (5.0-9.0) Urine Specific [place] 1.015 (1.001-1.035) Urine Protein Negative (Negative) Urine Ketones 1+ (Negative) Urine Blood Negative /uL (Negative) Urine Nitrite Negative (Negative) Urine Bilirubin Negative (Negative) Urine Urobilinogen Normal mg/dL (Negative) Urine Leukocyte Esterase Trace /uL (Negative) Urine RBC 1 /hpf (0 - 4) Urine WBC 2 /hpf (0 - 5) Urine Squamous Epithelial Cells Few /hpf (<5) Urine Bacteria Few /hpf (None Seen) Urine Glucose 3+ mg/dL (Normal) Other Laboratory Tests 07/30/24 06:58 Brief Hx & Hospital Course: Marina Martinez is a 68-year-old female patient with PMHx of bilateral triple negative breast cancer status post right mastectomy 2011 and left mastectomy September 2019-last chemotherapy 01/16, last radiotherapy 04/17, history of questionable pituitary adenoma, history of radiation pneumonitis, diabetes mellitus type 2 for the past 16 years, dyslipidemia, hypertension and osteopenia who was transferred from [facility] where she presented with the chief complaint of abdominal and back pain, inability to make urine. Patient reports that on 07/28 afternoon she started to experience lower abdominal pain which was crampy in nature and gradually worsening, she was unable to urinate and would experienced dysuria and urgency on urinating. She reports that she could not even walk because of the abdominal pain in the back pain. Associated symptoms include nausea and chills but no vomiting but no fever. She reports weight loss of about 3-4 lb in the past month. Also reports low appetite. She reports that this is the 1st time she is experiencing these symptoms. During the hospital stay at [facility], a UA was completed which showed moderate leukocyte esterase, nitrite negative, trace bacteria for which she was receiving ceftriaxone IV [address] lumbar spine was completed which showed no evidence of lumbar fracture, degenerative changes in the sacroiliac joint, multilevel lumbar spondylosis and lower degenerative facet Bilateral nephrolithiasis was seen. A CT scan of the abdomen pelvis was completed at [place] which showed no nephrolithiasis and no acute abdominopelvic abnormality. Past surgical history Complete hysterectomy 2016, bilateral ljgmoipybr-[id number] in 2011, left-sided in 2021 Social history Lives with Never smoked, drinks socially, denies illicit drug use Home medications: Metformin 1000 mg b.i.d., albuterol inhaler, atorvastatin 20 mg, famotidine 20 mg b.i.d., gabapentin 300 mg HS During the hospital workup, patient was started on ceftriaxone 1 g IV daily and she was diagnosed with acute complicated cystitis questionable bilateral pyelonephritis. Urinalysis at [facility] showed moderate leukocyte esterase, nitrite negative, trace bacteria for which she was receiving ceftriaxone IV 1 g daily. [facility]-CT lumbar spine showed Bilateral nephrolithiasis. CT scan of the abdomen pelvis was completed at [place] which showed no nephrolithiasis and no acute abdominopelvic abnormality. We completed a renal ultrasound which showed the right kidney measures 9.1 cm in length. The left kidney measures 9.0 cm. The kidneys demonstrate appropriate echotexture without evidence of a discrete renal lesion, nephrolithiasis or hydronephrosis. Preliminary urine culture reports Approximately 30,000 CFU/mL Possible Enterococcus. Patient underwent physical therapy and she walked 40 ft, physical therapy recommends home health with physical therapy. 07/31/2024-patient feels well, still have mild abdominal and back pain. Hemodynamically and clinically stable to be discharged on tablet Augmentin, home with home health services for physical therapy. Recommended the patient to follow up with the discharge clinic appointment within 7 days, follow up with primary care physician as outpatient within 7-14 days. Examination on the day of discharge: Elderly female patient lying in bed, in no acute distress, well conversational General: Well-built, afebrile, mucosae are moist. Has a lot of pain on sitting upright and postural changes. Cardiovascular: Regular S1 and S2. No murmurs, gallops or rubs. No JVD elevation. No pedal edema Respiratory: Normal B/L air entry on room air. Clear lung sounds on auscultation Abdomen: Soft, diffuse lower abdominal tenderness, nondistended, normoactive bowel sounds, no rebound tenderness, no organomegaly, no masses. Bilateral costovertebral angle tenderness. Genitourinary: Deferred MSK/skin: Mobilizes 4 limbs. Skin is dry and warm Neurological: No motor, no sensitive deficits, normal speech. Pupils are isocoric and reactive. Psych/Mental Status: A/Ox4 Discussed with Dr. Lloyd Operations or Procedures ORDERING PHYSICIAN: ROLDAN LEY RESIDENT PROCEDURE(s): KIDUS - KIDNEY REASON: complicated uti ORDER NUMBER(s): [id number], ACCESSION NUMBER(s): [id number] RENAL ULTRASOUND CLINICAL HISTORY: complicated uti TECHNIQUE: Multiple ultrasound images of the kidneys and bladder were obtained. COMPARISON: None FINDINGS: The right kidney measures 9.1 cm in length. The left kidney measures 9.0 cm. The kidneys demonstrate appropriate echotexture without evidence of a discrete renal lesion, nephrolithiasis or hydronephrosis. Bladder prevoid volume measures 540 cc. The postvoid residual measures 254 cc. Bilateral ureteral jets are seen. IMPRESSION: 1. Unremarkable renal ultrasound. 2. Moderate postvoid residual bladder. HS:Y ATED BY: JUANITO VICENTE MD DICTATED DATE/TIME: 07/30/24 1249 SIGNED BY: JUANITO VICENTE MD SIGNED DATE/TIME: 07/30/24 1249 CC: Condition at Discharge: Poor Final Diagnosis/Problems List Acute complicated cystitis questionable bilateral pyelonephritis ? Enterococcus Multilevel lumbar spondylosis Diabetes mellitus type 2 for the past 16 years-hemoglobin A1c 6.8 Bilateral triple negative breast cancer status post right mastectomy 2011 and left mastectomy September 2019-last chemotherapy 01/16, last radiotherapy 04/17 Dyslipidemia Hypertension Osteopenia History of questionable pituitary adenoma History of radiation pneumonitis Discharge Disposition: Home with Health Services Discharge Instruct/Medications Diet: Consistent carbohydrate Activity: Light activity Follow Up/Referral: Follow up with primary care physician in 7-14 days Medications: Tablet Augmentin daily for the next 7 days Discharge Statement: "Patient was advised to return to the ER or call 911 if any headaches, dizziness, shortness of breath, chest pain, abdominal pain, bleeding, fevers, or worsening of medical condition. Patient was counseled about treatment plan, medications, possible side effects, patientverbalized understanding. All questions were answered to the best of my ability. This discharge took greater then 30 minutes in planning, reviewing documentation, counseling the patient, and discussing with other team members." ASSESSMENT ASSESSMENT Assessment Acute complicated cystitis questionable bilateral pyelonephritis Multilevel lumbar spondylosis Diabetes mellitus type 2 for the past 16 years-hemoglobin A1c 6.8 Addendum Addendum Addendum I was physically present for the dominique portions of the service provided to patient by THE RESIDENT. I have reviewed the documentation, discussed the case with resident and agree with the resident's documentation except as noted. Also the patient's clinical case was discussed with the patient's nurse. This medical document was created using an electronic medical record system with computerized dictation system. Although this document has been carefully reviewed, there might still be some phonetic and typographical errors. These areas are purely typographical due to imperfections of the software programs, and do not reflect any compromise in the patient's medical care. Late signature. Date of Service: Jul 31, 2024 Billing Provider: IMTIAZ LLOYD MD Common Visit Codes: [id number] DISCH DAY >30min ROLDAN LYE RESIDENT Jul 31, 2024 12:47 IMTIAZ LLOYD MD Aug 01, 2024 04:50
[2024-07-31] MEDS ORDERED: AUG875T PO (14:01)
[2024-07-31] MEDS ORDERED: ACETAMINOPHEN 325 MG TAB PO ONE (14:15)
[2024-07-31] MEDS ORDERED: KETOROLAC TROMETH 30 MG/ML 1ML VIAL IV ONE (14:15)
[2024-07-31] MEDS ORDERED: IBUP1TAB4 PO (14:28)
[2024-07-31 15:55] LABS: Amphetamine Screen, Urine Neg (NEGATIVE)
[2024-07-31 15:56] LABS: Barbiturate Scree,Urine Neg (NEGATIVE); Benzodiazephine Screen, Urine Neg (NEGATIVE); Cocaine Screen, Urine Neg (NEGATIVE); Opiate Scree,Urine Neg (NEGATIVE)
[2024-07-31 15:57] LABS: Cannabinoid Screen, Urine Neg (NEGATIVE); Phencyclidine Screen, Urine Neg (NEGATIVE)
[2024-07-31 16:00] LABS: Micro Albumin < 3.0 mg/L (<30.0)
== END 2024-07-31 18:00 | disposition home health service (06) | DRG 690 ==
LOC: OVERFLOW 19:01 → EAST 19:19
PROVIDERS: ADMIT Internal Medicine; ATTEND Internal Medicine
DX: N30.00 Acute cystitis without hematuria (principal); N12 Tubulo-interstitial nephritis, not specified as acute or chronic; E11.9 Type 2 diabetes mellitus without complications; G31.89 Other specified degenerative diseases of nervous system; I10 Essential (primary) hypertension; E78.5 Hyperlipidemia, unspecified; Z20.822 Contact with and (suspected) exposure to COVID-19; M47.896 Other spondylosis, lumbar region; M85.88 Other specified disorders of bone density and structure, other site; Z90.13 Acquired absence of bilateral breasts and nipples; I25.2 Old myocardial infarction; Z88.6 Allergy status to analgesic agent; Z91.013 Allergy to seafood; Z90.710 Acquired absence of both cervix and uterus
CPT/HCPCS: 36415; 76775; 80048; 80076; 80307; 81001; 82043; 82306; 82607; 82962; 83036; 84443; 85025; 85610; 85730; 87086; 87088; 87186; 87426; 87804; 97110; 97116; 97163; G0378; J1815

== ENCOUNTER → 2024-08-08 | Outpatient (CLI) | payer OTHER ==
[~2024-08-08] MED LIST changes: +AUG875T PO; +IBUP1TAB4 PO
[2024-08-08 11:11] LABS: Basophils # (auto) 0.1 10 ^3/uL (0-0.2); Basophils % (auto) 0.7 % (0.0-2.0); Eosinophils # (auto) 0.1 10 ^3/uL (0-0.8); Eosinophils % (auto) 1.4 % (0.0-7.0); Hematocrit 36.5 % (36.0-46.0); Hemoglobin 12.2 g/dL (12.2-16.2); Lymphocytes # (auto) 1.6 10 ^3/uL (0.4-5.4); Lymphocytes % (auto) 18.8 % (10.0-50.0); Mean Corpuscular Hemoglobin 31.5 pg (28.0-32.0); Mean Corpuscular Hgb Conc. 33.3 g/dL (32.0-36.0); Mean Corpuscular Volume 94.6 fL (80.0-100.0); Monocytes # (auto) 0.5 10 ^3/uL (0-1.3); Monocytes % (auto) 6.1 % (0.0-12.0); Neutrophils # (auto) 6.3 10 ^3/uL (1.6-8.6); Platelet Count (auto) 280 10^3/uL (140-450); Red Blood Cells 3.86 10^6/uL (4.0-5.20); Red Cell Distribution Width 13.9 % (11.8-14.3); White Blood Cell 8.7 10^3/uL (4.4-10.8)
[2024-08-08 11:22] LABS: Anion Gap 7 (5-15); Calcium 10.2 mg/dL (8.7-10.4); Carbon Dioxide 27 mmol/L (20-31); Chloride 107 mmol/L (98-107); Potassium 4.6 mmol/L (3.5-5.1); Sodium 141 mmol/L (136-145)
[2024-08-08 11:28] LABS: BUN/Creatinine Ratio 14.5 (10.0-20.0); Blood Urea Nitrogen 11 mg/dL (9-23); Glucose 131 mg/dL (74-106)
[2024-08-08 11:53] LABS: Thyroid Stimulating Hormone 1.6 uIU/mL (0.55-4.78)
[2024-08-09 05:08] LABS: CA 27.29 18.1 U/mL (0.0-38.6)
[2024-08-09 12:07] LABS: Calcitriol(125 di-OH Vit D) 50.2 pg/mL (24.8-81.5)
== END | disposition home or self-care (01) ==
LOC: LAB 09:51
PROVIDERS: ATTEND Nurse Practitioner
DX: C50.911 Malignant neoplasm of unspecified site of right female breast (principal); D50.9 Iron deficiency anemia, unspecified
CPT/HCPCS: 36415; 80048; 82652; 83615; 84443; 85025; 86300

== ENCOUNTER → 2024-08-20 | Outpatient (CLI) | payer OTHER ==
[2024-08-20 10:12] LABS: Basophils # (auto) 0 10 ^3/uL (0-0.2); Basophils % (auto) 0.3 % (0.0-2.0); Eosinophils # (auto) 0.1 10 ^3/uL (0-0.8); Hematocrit 37.1 % (36.0-46.0); Hemoglobin 12.6 g/dL (12.2-16.2); Lymphocytes # (auto) 0.6 10 ^3/uL (0.4-5.4); Lymphocytes % (auto) 9.9 % (10.0-50.0); Mean Corpuscular Hemoglobin 31.9 pg (28.0-32.0); Mean Corpuscular Hgb Conc. 33.9 g/dL (32.0-36.0); Mean Corpuscular Volume 94.3 fL (80.0-100.0); Monocytes # (auto) 0.4 10 ^3/uL (0-1.3); Monocytes % (auto) 6.9 % (0.0-12.0); Neutrophils # (auto) 4.8 10 ^3/uL (1.6-8.6); Neutrophils % (auto) 80.9 % (37.0-80.0); Nucleated Red Blood Cells % 0.1 %; Platelet Count (auto) 251 10^3/uL (140-450); Red Blood Cells 3.94 10^6/uL (4.0-5.20); Red Cell Distribution Width 13.6 % (11.8-14.3); White Blood Cell 5.9 10^3/uL (4.4-10.8)
[2024-08-20 10:46] LABS: Alanine Aminotransferase 17 U/L (7-40); Albumin 4.6 g/dL (3.2-4.8); Alkaline Phosphatase 74 U/L (46-116); Anion Gap 8 (5-15); Aspartate Aminotransferase 24 U/L (13-40); BUN/Creatinine Ratio 17.7 (10.0-20.0); Bilirubin, Total 1.1 mg/dL (0.2-1.0); Blood Urea Nitrogen 14 mg/dL (9-23); Calcium 10.5 mg/dL (8.7-10.4); Carbon Dioxide 27 mmol/L (20-31); Chloride 108 mmol/L (98-107); Cholesterol 140 mg/dL (< 200); Glucose 154 mg/dL (74-106); HDL Cholesterol 48 mg/dL (40-59); LDL Cholesterol 75 mg/dL (< 100); Magnesium 1.6 mg/dL (1.6-2.6); Potassium 4.8 mmol/L (3.5-5.1); Sodium 143 mmol/L (136-145); Total Protein 7.3 g/dL (5.7-8.2); Triglycerides 111 mg/dL (< 150)
== END | disposition home or self-care (01) ==
LOC: LAB 09:42
PROVIDERS: ATTEND Nurse Practitioner Family
DX: E11.40 Type 2 diabetes mellitus with diabetic neuropathy, unspecified (principal); F33.0 Major depressive disorder, recurrent, mild; G43.919 Migraine, unspecified, intractable, without status migrainosus
CPT/HCPCS: 36415; 80053; 80061; 82306; 83036; 83735; 84443; 85025

== ENCOUNTER → 2024-11-20 | Outpatient (CLI) | payer OTHER ==
[2024-11-20 10:13] LABS: Basophils # (auto) 0 10 ^3/uL (0-0.2); Basophils % (auto) 0.5 % (0.0-2.0); Eosinophils # (auto) 0.1 10 ^3/uL (0-0.8); Hematocrit 37.7 % (36.0-46.0); Hemoglobin 12.3 g/dL (12.2-16.2); Lymphocytes # (auto) 1.5 10 ^3/uL (0.4-5.4); Lymphocytes % (auto) 20.3 % (10.0-50.0); Mean Corpuscular Hemoglobin 30.5 pg (28.0-32.0); Mean Corpuscular Hgb Conc. 32.6 g/dL (32.0-36.0); Mean Corpuscular Volume 93.7 fL (80.0-100.0); Monocytes # (auto) 0.5 10 ^3/uL (0-1.3); Neutrophils # (auto) 5.2 10 ^3/uL (1.6-8.6); Neutrophils % (auto) 70.2 % (37.0-80.0); Nucleated Red Blood Cells % 0.1 %; Platelet Count (auto) 252 10^3/uL (140-450); Red Blood Cells 4.02 10^6/uL (4.0-5.20); Red Cell Distribution Width 13.6 % (11.8-14.3); White Blood Cell 7.4 10^3/uL (4.4-10.8)
[2024-11-20 10:25] LABS: Urine Bacteria None Seen /hpf (None Seen)
[2024-11-20 11:01] LABS: Urine Blood TRACE /uL (Negative); Urine Clarity Clear (Clear); Urine Color Light-Yellow (Yellow); Urine Mucus FEW (None Seen); Urine Protein, UAD Negative (Negative); Urine Specific Gravity 1.021 (1.001-1.035); Urine Squamous Epithelial Cell FEW /hpf (<5); Urine Urobilinogen Normal (Negative); Urine WBC 4 /HPF (0-5); Urine pH 5.5 (5.0-9.0)
[2024-11-20 11:12] LABS: Folate (Folic Acid) 16.3 ng/mL (>5.38)
[2024-11-20 11:15] LABS: Alanine Aminotransferase 20 U/L (7-40); Alkaline Phosphatase 58 U/L (46-116); Anion Gap 7 (5-15); Aspartate Aminotransferase 22 U/L (13-40); BUN/Creatinine Ratio 22.9 (10.0-20.0); Blood Urea Nitrogen 19 mg/dL (9-23); Calcium 10.2 mg/dL (8.7-10.4); Carbon Dioxide 28 mmol/L (20-31); Chloride 103 mmol/L (98-107); LDL Cholesterol 58 mg/dL (< 100); Potassium 5.1 mmol/L (3.5-5.1); Sodium 138 mmol/L (136-145); Triglycerides 67 mg/dL (< 150)
[2024-11-20 11:16] LABS: Albumin 4.8 g/dL (3.2-4.8); Bilirubin, Total 0.6 mg/dL (0.2-1.0); Cholesterol 126 mg/dL (< 200); Glucose 116 mg/dL (74-106); HDL Cholesterol 53 mg/dL (40-59); Total Protein 7.3 g/dL (5.7-8.2)
[2024-11-20 11:26] LABS: Uric Acid 4.5 mg/dL (3.1-7.8)
== END | disposition home or self-care (01) ==
LOC: LAB 09:41
PROVIDERS: ATTEND Internal Medicine
DX: E61.2 Magnesium deficiency (principal); E55.9 Vitamin D deficiency, unspecified; D51.9 Vitamin B12 deficiency anemia, unspecified; E78.49 Other hyperlipidemia; E79.0 Hyperuricemia without signs of inflammatory arthritis and tophaceous disease; R94.6 Abnormal results of thyroid function studies; R82.79 Other abnormal findings on microbiological examination of urine; R82.998 Other abnormal findings in urine; R73.09 Other abnormal glucose; R68.89 Other general symptoms and signs; R82.90 Unspecified abnormal findings in urine
CPT/HCPCS: 36415; 80053; 80061; 81001; 82306; 82607; 82746; 83036; 84443; 84550; 85025; 87086

== ENCOUNTER → 2025-01-15 | Outpatient (CLI) | payer OTHER ==
[2025-01-15 11:50] LABS: Basophils # (auto) 0 10 ^3/uL (0-0.2); Basophils % (auto) 0.5 % (0.0-2.0); Eosinophils # (auto) 0.1 10 ^3/uL (0-0.8); Eosinophils % (auto) 1.1 % (0.0-7.0); Hematocrit 35.4 % (36.0-46.0); Lymphocytes # (auto) 1.3 10 ^3/uL (0.4-5.4); Lymphocytes % (auto) 19.9 % (10.0-50.0); Mean Corpuscular Hemoglobin 31.6 pg (28.0-32.0); Mean Corpuscular Hgb Conc. 33.8 g/dL (32.0-36.0); Mean Corpuscular Volume 93.4 fL (80.0-100.0); Monocytes # (auto) 0.4 10 ^3/uL (0-1.3); Monocytes % (auto) 5.9 % (0.0-12.0); Neutrophils # (auto) 4.7 10 ^3/uL (1.6-8.6); Neutrophils % (auto) 72.6 % (37.0-80.0); Nucleated Red Blood Cells % 0.1 %; Platelet Count (auto) 282 10^3/uL (140-450); Red Blood Cells 3.79 10^6/uL (4.0-5.20); Red Cell Distribution Width 13.8 % (11.8-14.3); White Blood Cell 6.4 10^3/uL (4.4-10.8)
[2025-01-15 11:54] LABS: % Iron Saturation 27.7 % (15-50)
[2025-01-15 11:55] LABS: Alanine Aminotransferase 14 U/L (7-40); Alkaline Phosphatase 74 U/L (46-116); Anion Gap 8 (5-15); Aspartate Aminotransferase 23 U/L (13-40); BUN/Creatinine Ratio 21.1 (10.0-20.0); Bilirubin, Total 0.9 mg/dL (0.2-1.0); Blood Urea Nitrogen 16 mg/dL (9-23); Calcium 10.1 mg/dL (8.7-10.4); Carbon Dioxide 27 mmol/L (20-31); Chloride 104 mmol/L (98-107); Potassium 4.2 mmol/L (3.5-5.1); Sodium 139 mmol/L (136-145); Total Protein 7.8 g/dL (5.7-8.2)
[2025-01-15 11:56] LABS: Albumin 4.9 g/dL (3.2-4.8); Glucose 130 mg/dL (74-106)
[2025-01-15 11:57] LABS: Thyroid Stimulating Hormone 1.57 uIU/mL (0.55-4.78)
== END | disposition home or self-care (01) ==
LOC: LAB 10:35
PROVIDERS: ATTEND Nurse Practitioner
DX: C50.911 Malignant neoplasm of unspecified site of right female breast (principal); C71.2 Malignant neoplasm of temporal lobe; N64.53 Retraction of nipple; N64.9 Disorder of breast, unspecified; D50.9 Iron deficiency anemia, unspecified; R10.13 Epigastric pain; Z88.6 Allergy status to analgesic agent; Z79.899 Other long term (current) drug therapy
CPT/HCPCS: 36415; 80053; 82306; 82728; 83540; 83550; 83615; 84443; 85025; 86300

== ENCOUNTER → 2025-02-15 | Outpatient (CLI) | payer OTHER ==
[2025-02-15 09:41] LABS: Anion Gap 10 (5-15); Calcium 10.3 mg/dL (8.7-10.4); Carbon Dioxide 27 mmol/L (20-31); Chloride 105 mmol/L (98-107); Potassium 4.8 mmol/L (3.5-5.1); Sodium 142 mmol/L (136-145)
[2025-02-15 09:47] LABS: BUN/Creatinine Ratio 14.3 (10.0-20.0); Blood Urea Nitrogen 12 mg/dL (9-23)
[2025-02-15 09:49] LABS: Creatinine, Urine 92.53 mg/dL (30.0-125.0)
[2025-02-15 10:06] LABS: Glucose 138 mg/dL (74-106)
== END | disposition home or self-care (01) ==
LOC: LAB 08:50
PROVIDERS: ATTEND Internal Medicine
DX: E11.9 Type 2 diabetes mellitus without complications (principal)
CPT/HCPCS: 36415; 80048; 82043; 82570

== ENCOUNTER 2025-03-26 11:55 | Emergency (ER) | payer MEDICAID, OTHER ==
[~2025-03-26] VITALS: Ht 157.5 cm; Wt 68.0 kg
--- NOTE | 2025-03-26 12:15 | ED.PDOC ---
History of Present Illness HPI Comments 69 y/o F, with PMHx of TX, DM, HLD, and HTN presents to the ED for CC of dizziness. Patient states, that she has been experiencing episodes of dizziness [id number] with associated dark stools [id number]. Patient relays, that she was seen by her PCP for symptoms and was told she was going to need a colonoscopy; end orses having an appointment in [id number]. Patient denies nausea, vomiting, fever, chills, fatigue, or weakness. No other symptoms or modifying factors present at this time. Chief Complaint: Dizziness Time Seen by MD: 12:05 Primary Care Provider: BRIANNA Reviewed Notes: Nurses Notes, Medications, Allergies Allergies: Coded Allergies: Beef Allergy (Verified Allergy, Intermediate, 01/18/23) Ibuprofen (Verified Allergy, Intermediate, VOMITING GI UPSET , 08/22/22) Uncoded Allergies: seafood (Allergy, Intermediate, 01/18/23) Home Meds Active Scripts Hydrocodone-Acetaminophen (Hydrocodone Bitartrate/AC 5-325 mg) 1 Tab Tab, 1 TAB PO DAILY for 5 Days, #5 TAB Prov:EVANGELINA MARTIN MD 03/26/25 Ibuprofen Micronized (Ibuprofen) 400 Mg Tab, 400 MG PO BIDP PRN for 7 Days, #14 TAB [facility] 07/[facility]24 Amoxicillin & Pot Clavulanate (AUGMENTIN TABLET) 875 Mg Tb, 875 MG PO BID for 7 Days, #14 TAB Prov[facility] 07/31/24 Hydrocodone-Acetaminophen (Hydrocodone/Acetaminophen 5-325 mg) 1 Tab Tab, 1 TAB PO TIDP PRN for 15 Days, #40 TAB Prov:SHEFALI GERMAN MD 05/20/23 Prednisone (Prednisone) 20 Mg Tab, 20 MG PO QAM for 14 Days, #28 MG Prov:SHEFALI GERMAN MD 05/20/23 Albuterol Sulfate (VENTOLIN MDI) 90 Mcg Ih, 90 MCG IN Q8HPRN PRN for 30 Days, #30 INH Prov:ANTONI SHEPARD MD 02/23/23 Gabapentin (Gabapentin) 100 Mg Cap, 100 MG PO BID for 60 Days, #120 CAP Prov:LAUREN [facility] [employer] TECHNICIAN 01/21/23 Meclizine HCl (Meclizine 25) 25 Mg Tab, 25 MG PO DAILY for 7 Days, #7 TAB Prov:EVANGELINA MARTIN MD 11/22/22 Reported Medications Metformin Hydrochloride (Metformin Hcl) 1,000 Mg Tab, 1 TAB PO BID 01/18/23 Ascorbic Acid (Gnp Vitamin C W/[place]) 500 Mg Tab, 1 TAB PO DAILY 01/18/23 Famotidine (PEPCID TABLET) 20 Mg Tb, 1 TAB PO BID 01/18/23 Gabapentin (Gabapentin) 300 Mg Cap, 2 CAP PO BID 08/22/22 Losartan Potassium (Losartan Potassium) 25 Mg Tab, 1 TAB PO DAILY 08/22/22 Atorvastatin Calcium (ATORVASTATIN CALCIUM) 20 Mg Tab, 1 TAB PO DAILY 08/22/22 Information Source: Patient Mode of Arrival: Wheelchair Severity: Moderate Timing: Months Duration: Since onset Prehospital treatment: None Past Medical History PAST MEDICAL HISTORY: Cancer, DM, High Lipids, HTN, TX, UTI'S Surgical History: Hysterectomy REGISTERED NURSE SURGICAL SERVICES History: No Pertinent REGISTERED NURSE SURGICAL SERVICES History Family History Family History: Reviewed,noncontributory to illness, Family hx of DM Social History Smoker: Non-Smoker Alcohol: Denies ETOH Use Drugs: Denies Drug Use Lives In: Home Constitutional: denies: chills, diaphoresis, fatigue, fever, malaise, sweats, weakness, others EENTM: denies: blurred vision, double vision, ear bleeding, ear discharge, ear drainage, ear pain, ear ringing, eye pain, eye redness, hearing loss, mouth pain, mouth swelling, nasal discharge, nose bleeding, nose congestion, nose pain, photophobia, tearing, throat pain, throat swelling, voice changes, others Respiratory: denies: cough, hemoptysis, orthopnea, SOB at rest, shortness of breath, SOB with excertion, stridor, wheezing, others Cardiovascular: denies: chest pain, dizzy spells, diaphoresis, Dyspnea on exertion, edema, irregular heart beat, left arm pain, lightheadedness, palpitations, PND, syncope, others Gastrointestinal: reports: melena; denies: abdomen distended, abdominal pain, blood streaked bowels, constipated, diarrhea, dysphagia, difficulty swallowing, hematemesis, nausea, poor appetite, poor fluid intake, rectal bleeding, rectal pain, vomiting, others Genitourinary: denies: abnormal vagina bleeding, burning, dyspareunia, dysuria, flank pain, frequency, hematuria, incontinence, pain, , vagina discharge, urgency, others Neurological: reports: dizziness; denies: fainting, headache, left sided numbness, left sided weakness, numbness, paresthesia, pre-existing deficit, right sided numbness, right sided weakness, seizure, speech problems, tingling, tremors, weakness, others Musculoskeletal: denies: back pain, gout, joint pain, joint swelling, muscle pain, muscle stiffness, neck pain, others Integumetry: denies: bruises, change in color, change in hair/nails, dryness, laceration, lesions, lumps, rash, wounds, others Allergic/Immunocompromised: denies: Difficulty Healing, Frequent Infections, Hives, Itching, others Hematologic/Lymphatic: denies: anemia, blood clots, easy bleeding, easy bruis ing, swollen glands, others Endocrine: denies: excessive hunger, excessive sweating, excessive thirst, exc essive urination, flushing, intolerance to cold, intolerance to heat, unexplained weight gain, unexplained weight loss, others Psychiatric: denies: anxiety, bipolar disorder, depression, hopeless, panic disorder, schizophrenia, sleepless, suicidal, others All Other Systems: Reviewed and Negative Physical Exam General Appearance: Moderate Distress HEENT: Normal ENT Inspection, Pharynx Normal, TMs Normal Neck: Full Range of Motion, Non-Tender, Normal, Normal Inspection Respiratory: Chest Non-Tender, Lungs Clear, No Accessory Muscle Use, No Respiratory Distress, Normal Breath Sounds Cardiovascular: No Edema, No JVD, No Murmur, No Gallop, Normal Peripheral Pulses, Regular Rate/Rhythm Breast Exam: Deferred Gastrointestinal: No Organomegaly, Non Tender, No Pulsatile Mass, Normal Bowel Sounds, Soft Genitalia: Deferred Pelvic: Deferred Rectal: Deferred Extremities: No calf tenderness, Normal capillary refill, Normal inspection, Normal range of motion, Non-tender, No pedal edema Musculoskeletal : Apperance: Normal Neurologic: Alert, shank paperer II-XII nml as Tested, No Motor Deficits, Normal Affect, Normal Mood, No Sensory Deficits Cerebellar Function: NOT DONE Reflexes: NOT DONE Skin: Dry, Normal Color, Warm Peripheral Pulses: 3+ Radial (R), 3+ Radial (L) Lymphatic: No Adenopathy Was a procedure done? Was a procedure done?: No EKG EKG : Pulse Rate (adult): 81 [place]: Normal Cardiac Rhythm: NSR Block: None Hypertrophy: None ST: Normal Differential Dx Considerations may include: ANEMIA, GI HEMORRHAGE, X-Ray, Labs, Meds, VS Vital Signs Date Time Temp Pulse Resp B/P (MAP) Pulse Ox O2 Delivery O2 Flow Rate FiO2 03/26/25 14:40 Room Air* 0 21 03/26/25 14:40 98.6 87 18 115/86 (96) 98 98.6 03/26/25 12:16 81 03/26/25 12:11 97.5 92 18 112/78 (89) 100 97.5 03/26/25 12:07 81 Lab Test 03/26/25 13:32 03/26/25 12:44 03/26/25 11:59 Range/Units Troponin I High Sensitivity < 3 L 3 L </=34 ng/L White Blood Count 9.1 4.4-10.8 10^3/uL Red Blood Count 3.74 L 4.0-5.20 10^6/uL Hemoglobin 11.7 L 12.2-16.2 g/dL Hematocrit 34.4 L 36.0-46.0 % Mean Corpuscular Volume 92.0 80.0-100.0 fL Mean Corpuscular Hemoglobin 31.3 28.0-32.0 pg Mean Corpuscular Hemoglobin Concent 34.0 32.0-36.0 g/dL Red Cell Distribution Width 13.4 11.8-14.3 % Platelet Count 300 140-450 10^3/uL Mean Platelet Volume 6.7 L 6.9-10.8 fL Neutrophils (%) (Auto) 73.1 37.0-80.0 % Lymphocytes (%) (Auto) 18.6 10.0-50.0 % Monocytes (%) (Auto) 6.7 0.0-12.0 % Eosinophils (%) (Auto) 1.1 0.0-7.0 % Basophils (%) (Auto) 0.5 0.0-2.0 % Neutrophils # (Auto) 6.6 1.6-8.6 10 ^3/uL Lymphocytes # (Auto) 1.7 0.4-5.4 10 ^3/uL Monocytes # (Auto) 0.6 0-1.3 10 ^3/uL Eosinophils # (Auto) 0.1 0-0.8 10 ^3/uL Basophils # (Auto) 0 0-0.2 10 ^3/uL Nucleated Red Blood Cells 0.0 % Sodium Level 142 136-145 mmol/L Potassium Level 4.8 3.5-5.1 mmol/L Chloride Level 106 98-107 mmol/L Carbon Dioxide Level 26 20-31 mmol/L Anion Gap 10 5-15 Blood Urea Nitrogen 17 9-23 mg/dL Creatinine 0.84 0.550-1.02 mg/dL Glomerular Filtration Rate Calc 75 >90 mL/min BUN/Creatinine Ratio 20.2 H 10.0-20.0 Serum Glucose 102 74-106 mg/dL Calcium Level 9.9 8.7-10.4 mg/dL POC Glucose 109 H 70-106 mg/dl [place] [id number] Ph: [phone] DIAGNOSTIC IMAGING Diagnostic Imaging Report : [id number] Signed PATIENT: VIKA MAGAÑA ACCT: [id number] UNIT: [id number] : 1955 LOC: ER ROOM / BED: / AGE / SEX: 69 / F ADM STATUS: REG ER SERVICE 1212 ORDERING PHYSICIAN: EVANGELINA MARTIN MD PROCEDURE(s): CXRP - CHEST PORTABLE REASON: sob ORDER NUMBER(s): [id number], ACCESSION NUMBER(s): [id number] EXAM: XY CHEST PORTABLE Indication: sob Technique: Single frontal view of the chest was obtained Comparison: XY CHEST PORTABLE on DOS: 02/22/23, CXRP on DOS: 08/22/22 FINDINGS: Lines and Tubes: Right chest port tip projects over superior vena cava. Lungs: Diffuse interstitial opacities. Pleura: No effusion. No pneumothorax. Cardiomediastinal contours: Unremarkable. Atherosclerotic vascular calcifications of the thoracic aorta are noted. Bones: No acute osseous abnormality. IMPRESSION: Diffuse interstitial opacities. ATED BY: EDWAR CLARK MD DICTATED DATE/TIME: 03/26/25 1249 SIGNED BY: EDWAR CLARK MD SIGNED DATE/TIME: 03/26/25 8548 CC: Patient alert. Complaining of tarry stools. Vitals stable. Answering questions. Comfortable. No sign of sepsis. Chronic history. Possibly will need colonoscopy. Scheduled outpatient scope. EKG reviewed does not show any acute changes. Abdomen is soft nontender. WBC within normal limits. Hemoglobin within normal limits. Stable upon discharge. Explained to the patient. Was told to follow up with her primary care physician. Was told to come back if there is any problem. Time of 1ST Reevaluation: 12:35 Reevaluation 1ST: Improved Patient Education/Counseling: Diagnosis, Treatment Family Education/Counseling: No Family Present SEPSIS Sepsis Screen Physician Orders Chest Portable (03/26/25 12:12) Urinalysis (03/26/25 12:12) Electrocardigram (03/26/25 12:26) Vital Signs Date Time Temp Pulse Resp B/P (MAP) Pulse Ox O2 Delivery O2 Flow Rate FiO2 03/26/25 14:40 Room Air* 0 21 03/26/25 14:40 98.6 87 18 115/86 (96) 98 98.6 03/26/25 12:16 81 03/26/25 12:11 97.5 92 18 112/78 (89) 100 97.5 03/26/25 12:07 81 Laboratory Tests Test 03/26/25 12:44 White Blood Count 9.1 10^3/uL (4.4-10.8) Departure 1 Departure Time of Disposition: 12:17 Impression: Primary Impression: Anemia Qualified Codes: D64.9 - Anemia, unspecified Disposition: 01 HOME / SELF CARE / HOMELESS Condition: Good e-Prescriptions Hydrocodone-Acetaminophen (Hydrocodone Bitartrate/AC 5-325 mg) 1 Tab Tab 1 TAB PO DAILY for 5 Days, #5 TAB Prov: EVANGELINA MARTIN MD 03/26/25 Discharged With: Self Critical Care Note Critical Care Time?: No Stability Stability form required: No Heart Score Heart Score: Heart Score Response (Comments) Value History Slightly Suspicious 0 EKG Normal 0 Age >65 2 Risk Factors >3 or Hx ASHD 2 Troponin Normal limit 0 Total 4 I personally scribed for EVANGELINA MARTIN MD ([email or web address]) on 03/26/25 at 12:15. Electronically submitted by Carolina Horta ([email or web address]). I personally scribed for EVANGELINA MARTIN MD ([email or web address]) on 03/26/25 at 12:16. Electronically submitted by Carolina Horta ([email or web address]). I personally scribed for EVANGELINA MARTIN MD ([email or web address]) on 03/26/25 at 12:58. Electronically submitted by Carolina Horta ([email or web address]). EVANGELINA MARTIN MD Mar 26, 2025 12:15
--- NOTE | 2025-03-26 12:52 | DVH ---
EXAM: XY CHEST PORTABLE Indication: sob Technique: Single frontal view of the chest was obtained Comparison: XY CHEST PORTABLE on DOS: 02/22/23, CXRP on DOS: 08/22/22 FINDINGS: Lines and Tubes: Right chest port tip projects over superior vena cava. Lungs: Diffuse interstitial opacities. Pleura: No effusion. No pneumothorax. Cardiomediastinal contours: Unremarkable. Atherosclerotic vascular calcifications of the thoracic ao rta are noted. Bones: No acute osseous abnormality. IMPRESSION: Diffuse interstitial opacities.
[2025-03-26 12:58] LABS: Hematocrit 34.4 % (36.0-46.0); Hemoglobin 11.7 g/dL (12.2-16.2); Mean Corpuscular Hemoglobin 31.3 pg (28.0-32.0); Mean Corpuscular Volume 92.0 fL (80.0-100.0); Nucleated Red Blood Cells % 0.0 %
[2025-03-26 13:11] LABS: Chloride 106 mmol/L (98-107); Potassium 4.8 mmol/L (3.5-5.1); Sodium 142 mmol/L (136-145)
[2025-03-26 13:12] LABS: Anion Gap 10 (5-15); Carbon Dioxide 26 mmol/L (20-31)
[2025-03-26 13:13] LABS: Calcium 9.9 mg/dL (8.7-10.4)
[2025-03-26 13:18] LABS: BUN/Creatinine Ratio 20.2 (10.0-20.0); Blood Urea Nitrogen 17 mg/dL (9-23); Glucose 102 mg/dL (74-106)
[2025-03-26 14:40] VITALS: BP 115/86; PULSE 87; RESP 18; TEMP 98.6; O2SAT 98
[2025-03-26] MEDS ORDERED: HYDR-4902 PO (15:02)
== END 2025-03-26 14:45 | disposition home or self-care (01) ==
LOC: ER 11:55
DX: D64.9 Anemia, unspecified (principal); E11.9 Type 2 diabetes mellitus without complications; E78.5 Hyperlipidemia, unspecified; I10 Essential (primary) hypertension; I25.2 Old myocardial infarction; Z90.710 Acquired absence of both cervix and uterus; Z88.6 Allergy status to analgesic agent; Z79.899 Other long term (current) drug therapy
CPT/HCPCS: 36415; 71045; 80048; 82947; 82962; 84484; 85025

== ENCOUNTER 2025-04-05 12:58 | Day surgery (SDC) | payer OTHER ==
[2025-04-04 10:20] LABS: Hematocrit 35.6 % (36.0-46.0); Hemoglobin 12.1 g/dL (12.2-16.2); Mean Corpuscular Hemoglobin 31.5 pg (28.0-32.0); Mean Corpuscular Volume 92.6 fL (80.0-100.0); Nucleated Red Blood Cells % 0.0 %
[2025-04-04 10:33] LABS: INR 1.03 (0.9-1.15); Partial Thromboplastin Time 27.8 SEC (24.5-34.5); Prothrombin Time 10.9 sec (9.3-11.8)
[2025-04-04 10:34] LABS: Urine Protein, UAD Negative (Negative)
[2025-04-04 10:39] LABS: Alanine Aminotransferase 19 U/L (7-40); Albumin 4.6 g/dL (3.2-4.8); Alkaline Phosphatase 61 U/L (46-116); Anion Gap 8 (5-15); BUN/Creatinine Ratio 20.0 (10.0-20.0); Bilirubin, Total 0.8 mg/dL (0.2-1.0); Blood Urea Nitrogen 17 mg/dL (9-23); Calcium 10.1 mg/dL (8.7-10.4); Carbon Dioxide 28 mmol/L (20-31); Chloride 106 mmol/L (98-107); Glucose 143 mg/dL (74-106); Potassium 4.2 mmol/L (3.5-5.1); Sodium 142 mmol/L (136-145); Total Protein 7.1 g/dL (5.7-8.2)
[~2025-04-05] VITALS: Ht 162.6 cm; Wt 52.2 kg
[~2025-04-05 12:58] MED LIST changes: -AUG875T PO; +HYDR-4902 PO; -IBUP1TAB4 PO; -PRED20TA2 PO
[2025-04-05] MEDS ORDERED: SODIUM CHLORIDE LOCK 10 ML ONE (14:46)
[2025-04-05 15:27] VITALS: PULSE 113; RESP 25; O2SAT 98
[2025-04-05] MEDS: fentaNYL CITRATE 100 MCG/2 ML VL ONE (15:31)
[2025-04-05] MEDS: diphenhdrAMINE HCL 50 MG/1 ML VL ONE (15:31)
[2025-04-05] MEDS: MIDAZOLAM HCL 5 MG/ML-1ML VIAL ONE (15:31)
[2025-04-05] MEDS: LIDOCAINE VISCOUS 2% 15ML UD ONE (15:31)
[2025-04-05 15:43] VITALS: PULSE 90; RESP 15; TEMP 98.1; O2SAT 100
--- NOTE | 2025-04-05 15:46 | DVHOP2 ---
Operative Report DATE OF OPERATION: 04/05/25 PROCEDURE: Upper Endoscopy with biopsy. PREOPERATIVE INDICATION: The patient is a 69 -year-old female undergoing endoscopy for epigastric pain dyspepsia and questionable history of melena POSTOPERATIVE DIAGNOSES: 1. Mild gastritis with some hyperemia erythema with no significant ulceration and no fresh or old blood in the GI tract 0-0.5 cm sliding-type hiatal hernia otherwise normal examination up to the 2nd and 3rd part of the duodenum PROCEDURE PERFORMED BY: Xiomara Russell GI NURSE: SCOPE: Olympus videoendoscope. ASA CLASS: 2. PREOPERATIVE MEDICATIONS: Versed 2 mg, Fentanyl 50 mcg, Benadryl 50 mg I administered moderate sedation throughout this _7_ minutes procedure. An independent trained observer pushed medications at my direction, and monitored the patient's level of consciousness and physiological status throughout. PROCEDURE IN DETAIL: After obtaining an informed consent, the patient was placed on left lateral decubitus position. The patient was then sedated with the above medications. A bite block was placed between her teeth. The endoscope was then passed through the oropharynx, into the esophagus, and through the stomach and pylorus up to the second and third part of the duodenum. The endoscope was then withdrawn. The 2nd and 3rd part of the duodenum and the duodenal bulb were normal. Duodenal biopsies were obtained The pre-pyloric area antrum and body showed mild gastritis with some hyperemia erythema. Gastric biopsies were obtained On retroflexion the fundus cardia and angularis were normal. The endoscope was then withdrawn into the distal esophagus Patient had a 0.5 cm sliding-type hiatal hernia with slightly irregular squamocolumnar junction no significant erosive esophagitis The remaining distal and proximal esophagus and oropharynx were unremarkable. GE junction biopsies were obtained The patient tolerated the procedure well without difficulty. COMPLICATIONS : None SPECIMENS: Duodenal biopsies Gastric biopsies GE junction biopsies DISPOSITION: Stable D/C to home PLAN: 1. Await for biopsy result 2. Will place pt on Protonix 40 mg p.o. daily 3. Carafate 1 g p.o. twice a day 4. DC aspirin NSAIDs smoking alcohol 5. Outpatient follow up with me in 2-4 weeks to review results and discuss further management XIOMARA RUSSELL MD Apr 05, 2025 15:46
[2025-04-05 16:55] VITALS: BP 118/75; PULSE 78; RESP 16; O2SAT 95
== END 2025-04-05 17:00 | disposition home or self-care (01) ==
LOC: GI 12:58
PROVIDERS: ATTEND Internal Medicine Gastroenterology
DX: R10.13 Epigastric pain (principal); K44.9 Diaphragmatic hernia without obstruction or gangrene; K29.50 Unspecified chronic gastritis without bleeding; K20.80 Other esophagitis without bleeding; I10 Essential (primary) hypertension; E11.9 Type 2 diabetes mellitus without complications; F41.9 Anxiety disorder, unspecified; Z98.41 Cataract extraction status, right eye; Z98.42 Cataract extraction status, left eye; Z90.710 Acquired absence of both cervix and uterus; Z98.890 Other specified postprocedural states; Z98.891 History of uterine scar from previous surgery; Z88.6 Allergy status to analgesic agent; Z91.013 Allergy to seafood; Z79.84 Long term (current) use of oral hypoglycemic drugs; Z79.899 Other long term (current) drug therapy; Z91.014 Allergy to mammalian meats; Z85.3 Personal history of malignant neoplasm of breast; Z82.49 Family history of ischemic heart disease and other diseases of the circulatory system; Z80.3 Family history of malignant neoplasm of breast
CPT/HCPCS: 36415; 43239; 80053; 81001; 82962; 85025; 85610; 85730; 88305; 88342; J1200; J2250; J3010; J7030

== ENCOUNTER 2025-04-08 09:49 | Outpatient (CLI) | payer OTHER ==
[2025-04-08 10:27] LABS: Hematocrit 34.4 % (36.0-46.0); Hemoglobin 11.8 g/dL (12.2-16.2); Mean Corpuscular Hemoglobin 31.4 pg (28.0-32.0); Mean Corpuscular Volume 91.7 fL (80.0-100.0); Nucleated Red Blood Cells % 0.0 %
[2025-04-08 10:43] LABS: Urine Protein, UAD Negative (Negative)
[2025-04-08 10:44] LABS: Alanine Aminotransferase 19 U/L (7-40); Albumin 4.7 g/dL (3.2-4.8); Alkaline Phosphatase 65 U/L (46-116); Anion Gap 9 (5-15); BUN/Creatinine Ratio 18.9 (10.0-20.0); Blood Urea Nitrogen 17 mg/dL (9-23); Carbon Dioxide 27 mmol/L (20-31); Chloride 106 mmol/L (98-107); Cholesterol 137 mg/dL (< 200); Glucose 96 mg/dL (74-106); HDL Cholesterol 48 mg/dL (40-59); Sodium 142 mmol/L (136-145); Total Protein 7.4 g/dL (5.7-8.2); Triglycerides 67 mg/dL (< 150)
[2025-04-08 10:45] LABS: Bilirubin, Total 0.7 mg/dL (0.2-1.0)
[2025-04-08 10:53] LABS: Calcium 10.6 mg/dL (8.7-10.4); Potassium 5.1 mmol/L (3.5-5.1)
[2025-04-08 11:02] LABS: Uric Acid 4.6 mg/dL (3.1-7.8)
== END 2025-04-08 17:00 | disposition home or self-care (01) ==
LOC: LAB 09:49
PROVIDERS: ATTEND Internal Medicine
DX: E11.9 Type 2 diabetes mellitus without complications (principal); E78.49 Other hyperlipidemia; E61.2 Magnesium deficiency; E79.0 Hyperuricemia without signs of inflammatory arthritis and tophaceous disease; E55.9 Vitamin D deficiency, unspecified; D51.9 Vitamin B12 deficiency anemia, unspecified; R82.79 Other abnormal findings on microbiological examination of urine; R82.90 Unspecified abnormal findings in urine; R82.998 Other abnormal findings in urine; R94.6 Abnormal results of thyroid function studies; R68.89 Other general symptoms and signs
CPT/HCPCS: 36415; 80053; 80061; 81001; 82306; 82607; 82746; 83036; 84443; 84480; 84550; 85025; 87086

== ENCOUNTER 2025-05-08 12:43 | Emergency (ER) | payer OTHER ==
[~2025-05-08] VITALS: Ht 162.6 cm; Wt 51.7 kg
[2025-05-08 12:45] VITALS: TEMP 98.4
--- NOTE | 2025-05-08 13:59 | ED.PDOC ---
Musculoskeletal HPI Comments A 69-YEAR-OLD FEMALE PRESENTS WITH A CHIEF COMPLAINT OF RIGHT ARM PAIN x 1 WEEK. PATIENT STATES THAT HER PAIN IS LOCALIZED TO HER RIGHT ARM, MOSTLY TO HER ELBOW REGION. PATIENT DENIES ANY INJURIES OR DEFORMITIES. PATIENT IS ABLE TO MOVE BOTH EXTREMITIES WITHOUT ASSISTANCE. PATIENT DENIES ANY CHEST PAIN, SOB, HEADACHE, ABDOMEN PAIN, NAUSEA, VOMITING, DIARRHEA, FEVER, CHILLS, OR BACK PAIN. NO OTHER SYMPTOMS REPORTED AT THIS TIME OF CARE. Chief Complaint: Upper Extremity Paresis Time Seen by MD: 13:55 Primary Care Provider: BRIANNA Reviewed Notes: Nurses Notes, Medications, Allergies Allergies: Coded Allergies: Beef Allergy (Verified Allergy, Intermediate, 01/18/23) Ibuprofen (Verified Allergy, Intermediate, VOMITING GI UPSET , 08/22/22) Uncoded Allergies: seafood (Allergy, Intermediate, 01/18/23) Home Meds Active Scripts Hydrocodone-Acetaminophen (Hydrocodone Bitartrate/AC 5-325 mg) 1 Tab Tab, 1 TAB PO DAILY for 5 Days, #5 TAB Prov:EVANGELINA MARTIN MD 03/26/25 Hydrocodone-Acetaminophen (Hydrocodone/Acetaminophen 5-325 mg) 1 Tab Tab, 1 TAB PO TIDP PRN for 15 Days, #40 TAB Prov:SHEFALI GERMAN MD 05/20/23 Albuterol Sulfate (VENTOLIN MDI) 90 Mcg Ih, 90 MCG IN Q8HPRN PRN for 30 Days, #30 INH Prov:ANTONI SHEPARD MD 02/23/23 Gabapentin (Gabapentin) 100 Mg Cap, 100 MG PO BID for 60 Days, #120 CAP Prov:LAUREN DIXON NP 01/21/23 Meclizine HCl (Meclizine 25) 25 Mg Tab, 25 MG PO DAILY for 7 Days, #7 TAB Prov:EVANGELINA MARTIN MD 11/22/22 Reported Medications Metformin Hydrochloride (Metformin Hcl) 1,000 Mg Tab, 1 TAB PO BID 01/18/23 Ascorbic Acid (Gnp Vitamin C W/[place] Hips) 500 Mg Tab, 1 TAB PO DAILY 01/18/23 Famotidine (PEPCID TABLET) 20 Mg Tb, 1 TAB PO BID 01/18/23 Gabapentin (Gabapentin) 300 Mg Cap, 2 CAP PO BID 08/22/22 Losartan Potassium (Losartan Potassium) 25 Mg Tab, 1 TAB PO DAILY 08/22/22 Atorvastatin Calcium (ATORVASTATIN CALCIUM) 20 Mg Tab, 1 TAB PO DAILY 08/22/22 Information Source: Patient Mode of Arrival: Ambulatory Location: Right Extremity Location: Arm, Elbow Timing: Days Prehospital treatment: None Severity: Moderate Able to Move Extremity: Yes Bear Weight: Limited Pain: Moderate Hand Dominance: Right Mechanism: Spontaneous Circumstances: Spontaneous Onset of Symptoms: Spontaneous Symptoms: Pain DVT Risk Factors: NONE Last Tetanus: UTD Associated signs and symptoms: Arm pain, Forearm pain, Elbow pain Past Medical History PAST MEDICAL HISTORY: Cancer, DM, High Lipids, HTN, UTI'S Surgical History: Hysterectomy [employer] History: No Pertinent [employer] History Family History Family History: Reviewed,noncontributory to illness, Family hx of DM Social History Smoker: Non-Smoker Alcohol: Denies ETOH Use Drugs: Denies Drug Use Lives In: Home Constitutional: denies: chills, diaphoresis, fatigue, fever, malaise, sweats, weakness, others EENTM: denies: blurred vision, double vision, ear bleeding, ear discharge, ear drainage, ear pain, ear ringing, eye pain, eye redness, hearing loss, mouth pain, mouth swelling, nasal discharge, nose bleeding, nose congestion, nose pain, photophobia, tearing, throat pain, throat swelling, voice changes, others Respiratory: denies: cough, hemoptysis, orthopnea, SOB at rest, shortness of breath, SOB with excertion, stridor, wheezing, others Cardiovascular: denies: chest pain, dizzy spells, diaphoresis, Dyspnea on exertion, edema, irregular heart beat, left arm pain, lightheadedness, palpitations, PND, syncope, others Gastrointestinal: denies: abdomen distended, abdominal pain, blood streaked bowels, constipated, diarrhea, dysphagia, difficulty swallowing, hematemesis, melena, nausea, poor appetite, poor fluid intake, rectal bleeding, rectal pain, vomiting, others Genitourinary: denies: abnormal vagina bleeding, burning, dyspareunia, dysuria, flank pain, frequency, hematuria, incontinence, pain, , vagina discharge, urgency, others Neurological: denies: dizziness, fainting, headache, left sided numbness, left sided weakness, numbness, paresthesia, pre-existing deficit, right sided numbness, right sided weakness, seizure, speech problems, tingling, tremors, weakness, others Musculoskeletal: reports: joint pain, joint swelling, muscle pain; denies: back pain, gout, muscle stiffness, neck pain, others Integumetry: denies: bruises, change in color, change in hair/nails, dryness, laceration, lesions, lumps, rash, wounds, others Allergic/Immunocompromised: denies: Difficulty Healing, Frequent Infections, H anjel, Itching, others Hematologic/Lymphatic: denies: anemia, blood clots, easy bleeding, easy bruising, swollen glands, others Endocrine: denies: excessive hunger, excessive sweating, excessive thirst, excessive urination, flushing, intolerance to cold, intolerance to heat, unexplained weight gain, unexplained weight loss, others Psychiatric: denies: anxiety, bipolar disorder, depression, hopeless, panic disorder, schizophrenia, sleepless, suicidal, others All Other Systems: Reviewed and Negative Physical Exam General Appearance: No Apparent Distress, Normal HEENT: Normal ENT Inspection, PERRL/EOMI, Pharynx Normal, TMs Normal Neck: Full Range of Motion, Non-Tender, Normal, Normal Inspection Respiratory: Chest Non-Tender, Lungs Clear, No Accessory Muscle Use, No Respiratory Distress, Normal Breath Sounds Cardiovascular: No Edema, No JVD, No Murmur, No Gallop, Normal Peripheral Pulses, Regular Rate/Rhythm Breast Exam: Deferred Gastrointestinal: No Organomegaly, Non Tender, No Pulsatile Mass, Normal Bowel Sounds, Soft Genitalia: Deferred Pelvic: Deferred Rectal: Deferred Extremities: No calf tenderness, Normal capillary refill, Normal range of motion, No pedal edema, Swelling (AND TENDERNESS ON RIGHT INNER ELBOW, NO REDNESS AND OPEN WOUND. ), Tender (TENDERNESS ON RIGHT ARM AND FOREARM, NO REDNESS, SWELLING AND DVT SIGNS. ) Musculoskeletal : Apperance: Normal Neurologic: Alert, ergonomic specialist II-XII nml as Tested, No Motor Deficits, Normal Affect, Normal Mood, No Sensory Deficits Cerebellar Function: Normal Reflexes: Normal Skin: Dry, Normal Color, Warm Peripheral Pulses: 2+ carotid (R), 2+ carotid (L), 2+ Radial (R), 2+ Radial (L) Lymphatic: No Adenopathy Was a procedure done? Was a procedure done?: No Differential Diagnosis EXT Differential Diagnosis: Cellulitis, Sprain, Arthritis, Bursitis, Other X-Ray, Labs, Meds, VS Vital Signs Date Time Temp Pulse Resp B/P (MAP) Pulse Ox O2 Delivery O2 Flow Rate FiO2 05/08/25 12:45 98.4 93 18 155/94 98 98.4 Lab Test 05/08/25 14:21 05/08/25 13:36 Range/Units White Blood Count 7.4 4.4-10.8 10^3/uL Red Blood Count 4.03 4.0-5.20 10^6/uL Hemoglobin 12.7 12.2-16.2 g/dL Hematocrit 37.4 36.0-46.0 % Mean Corpuscular Volume 92.8 80.0-100.0 fL Mean Corpuscular Hemoglobin 31.6 28.0-32.0 pg Mean Corpuscular Hemoglobin Concent 34.0 32.0-36.0 g/dL Red Cell Distribution Width 14.0 11.8-14.3 % Platelet Count 272 140-450 10^3/uL Mean Platelet Volume 7.1 6.9-10.8 fL Neutrophils (%) (Auto) 69.4 37.0-80.0 % Lymphocytes (%) (Auto) 22.6 10.0-50.0 % Monocytes (%) (Auto) 6.2 0.0-12.0 % Eosinophils (%) (Auto) 1.3 0.0-7.0 % Basophils (%) (Auto) 0.5 0.0-2.0 % Neutrophils # (Auto) 5.1 1.6-8.6 10 ^3/uL Lymphocytes # (Auto) 1.7 0.4-5.4 10 ^3/uL Monocytes # (Auto) 0.5 0-1.3 10 ^3/uL Eosinophils # (Auto) 0.1 0-0.8 10 ^3/uL Basophils # (Auto) 0 0-0.2 10 ^3/uL Nucleated Red Blood Cells 0.0 % Sodium Level 141 136-145 mmol/L Potassium Level 3.8 3.5-5.1 mmol/L Chloride Level 105 98-107 mmol/L Carbon Dioxide Level 27 20-31 mmol/L Anion Gap 9 5-15 Blood Urea Nitrogen 14 9-23 mg/dL Creatinine 0.92 0.550-1.02 mg/dL Glomerular Filtration Rate Calc 67 >90 mL/min BUN/Creatinine Ratio 15.2 10.0-20.0 Serum Glucose 107 H 74-106 mg/dL Uric Acid 5.0 3.1-7.8 mg/dL Calcium Level 10.0 8.7-10.4 mg/dL Total Bilirubin 0.9 0.2-1.0 mg/dL Aspartate Amino Transferase (AST) 35 13-40 U/L Alanine Aminotransferase (ALT) 19 7-40 U/L Alkaline Phosphatase 59 46-116 U/L Total Protein 7.9 5.7-8.2 g/dL Albumin 5.1 H 3.2-4.8 g/dL Urine Color Yellow Yellow Urine Clarity Clear Clear Urine pH 5.5 5.0-9.0 Urine Specific [place] 1.023 1.001-1.035 Urine Protein Negative Negative Urine Ketones Negative Negative Urine Blood 1+ H Negative /uL Urine Nitrite Negative Negative Urine Bilirubin Negative Negative Urine Urobilinogen Normal Negative mg/dL Urine Leukocyte Esterase Negative Negative /uL Urine RBC 14 0 - 4 /hpf Urine Microscopic WBC 3 0-5 /HPF Urine Squamous Epithelial Cells Few <5 /hpf Urine Bacteria None seen None Seen /hpf Urine Mucus Few None Seen Urine Glucose Normal Normal mg/dL PATIENT: VIKA MAGAÑA MACCT: [id number]: [id number] : 1955 LOC: ER ROOM / BED: / AGE / SEX: 69 / F ADM STATUS: REG ER SERVICE [id number] ORDERING PHYSICIAN: KELL BROCK PROCEDURE(s): RUDVT - Rt Upper DVT REASON: RIGHT UPPER EXTREMITY PAIN AND MILD SWELLING ORDER NUMBER(s): [id number], ACCESSION NUMBER(s): [id number] RIGHT Upper Extremity Venous Duplex Clinical History: RIGHT UPPER EXTREMITY PAIN AND MILD SWELLING Comparison: None Technique: Duplex Doppler evaluation of the venous system of the RIGHT lower neck and upper extremity including color Doppler and spectral/pulsed waveform analysis was performed. Findings: The internal jugular vein demonstrates appropriate compressibility and waveform variability. The subclavian vein is patent on color Doppler evaluation without intraluminal thrombus and demonstrates waveform variability. The visualized portion of the brachiocephalic vein is patent on color Doppler evaluation without intraluminal thrombus and demonstrates waveform variability. The axillary vein demonstrates appropriate compressibility and waveform variability. The brachial veins demonstrate appropriate compressibility and patency on Doppler evaluation. The basilic vein demonstrates appropriate compressibility and patency on Doppler evaluation. The cephalic vein demonstrates appropriate compressibility and patency on Doppler evaluation. Impression: No venous thrombus identified in the RIGHT upper extremity vessels evaluated above. ATED BY: AZAR STEPHENSON MD DICTATED DATE/TIME: 05/08/251427 SIGNED BY: AZAR STEPHENSON MD SIGNED DATE/TIME: 05/08/251427 CC: X-Ray, Labs, Meds, VS Comment EXTERNAL MEDICAL RECORDS REVIEWED: [NONE] INDEPENDENT HISTORIANS: [NONE] SOCIAL DETERMINANTS OF HEALTH: [NONE] LABS ORDERED: CBC, CMP AND UA REVIEWED AND INTERPRETED RESULTS: NORMAL IMAGING ORDERED: RIGHT ELBOW: NO ACUTE FINDING, RIGHT UPPER EXTREMITY DVT TEST: NO DVT TREATMENTS ORDERED: NO PROCEDURES PERFORMED: NONE CRITICAL CARE TIME: NONE I HAVE DISCUSSED THE PATIENT WITH THE ATTENDING PHYSICIAN DR. SANFORD AND HE AGREES WITH THE PATIENT'S PLAN OF CARE AND DISPOSITION. BASED ON HISTORY OF PRESENT ILLNESS, AND PHYSICAL EXAM, PATIENT WILL BE DISCHARGED HOME. DISCUSSED PLAN FOR DISCHARGE HOME WITH RX [NAPROXEN 500MG]. MEDICATION WARNINGS GIVEN. SHARED DECISION MAKING: DISCUSSED WITH PATIENT THAT THEIR WORKUP WAS NORMAL. PATIENT INSTRUCTED TO FOLLOW UP WITH PRIMARY CARE PROVIDER IN 1-2 DAYS FOR RE- EVALUATION OF SYMPTOMS. PATIENT VERBALIZES UNDERSTANDING TO RETURN TO ED FOR NEW OR WORSENING SYMPTOMS OR IF FOLLOW UP WITH PCP CANNOT BE OBTAINED. PATIENT FEELS COMFORTABLE GOING HOME AT THIS TIME. ALL QUESTIONS ADDRESSED AT TIME OF DISCHARGE. Time of 1ST Reevaluation: 14:10 Reevaluation 1ST: Unchanged Patient Education/Counseling: Diagnosis, Treatment, Need For Follow Up Family Education/Counseling: Diagnosis, Treatment, Need For Follow Up Medical Screening: No EMC Exist At This Time Departure 1 Departure Time of Disposition: 15:15 Impression: Primary Impression: Tendinitis of right elbow Disposition: 01 HOME / SELF CARE / HOMELESS Condition: Stable Additional Instructions: FOLLOW-UP WITH PCP IN 1 TO 2 DAYS. TAKE MEDICATIONS PRESCRIBED. RETURN TO ED FOR ANY NEW OR WORSENING SYMPTOMS. e-Prescriptions Naproxen (Naproxen) 500 Mg Tab 500 MG PO BID, #30 TAB Prov: KELL BROCK 05/08/25 Discharged With: Self, Spouse Critical Care Note Critical Care Time?: No Stability Stability form required: No Heart Score Heart Score: Heart Score Response (Comments) Value History N/A 0 EKG N/A 0 Age N/A 0 Risk Factors N/A 0 Troponin N/A 0 Total 0 I personally scribed for KELL BROCK ([email or web address]) on 05/08/25 at 13:59. Electronically submitted by Thierry Aldana ([email or web address]). KELL BROCK May 08, 2025 13:59
--- NOTE | 2025-05-08 14:20 | DVH ---
EXAM: XY R ELBOW 3 VIEW XRAY CLINICAL INDICATION: PAIN AND MILD SWELLING, NO INJURY TECHNIQUE: XY R ELBOW 3 VIEW XRAY Comparison: None FINDINGS/IMPRESSION: There is no evidence of acute fracture or dislocation. The visualized joint space is well maintained. The alignment is anatomical. There is no radiopaque foreign body.
--- NOTE | 2025-05-08 14:31 | DVH ---
RIGHT Upper Extremity Venous Duplex Clinical History: RIGHT UPPER EXTREMITY PAIN AND MILD SWELLING Comparison: None Technique: Duplex Doppler evaluation of the venous system of the RIGHT lower neck and upper extremity including color Doppler and spectral/pulsed waveform analysis was performed. Findings: The internal jugular vein demonstrates appropriate compressibility and waveform variability. The subclavian vein is patent on color Doppler evaluation without intraluminal thrombus and demonstra sami waveform variability. The visualized portion of the brachiocephalic vein is patent on color Doppler evaluation without intr aluminal thrombus and demonstrates waveform variability. The axillary vein demonstrates appropriate compressibility and waveform variability. The brachial veins demonstrate appropriate compressibility and patency on Doppler evaluation. The basilic vein demonstrates appropriate compressibility and patency on Doppler evaluation. The cephalic vein demonstrates appropriate compressibility and patency on Doppler evaluation. Impression: No venous thrombus identified in the RIGHT upper extremity vessels evaluated above.
[2025-05-08 14:38] LABS: Hematocrit 37.4 % (36.0-46.0); Hemoglobin 12.7 g/dL (12.2-16.2); Mean Corpuscular Hemoglobin 31.6 pg (28.0-32.0); Mean Corpuscular Volume 92.8 fL (80.0-100.0); Nucleated Red Blood Cells % 0.0 %
[2025-05-08 14:42] LABS: Urine Protein, UAD Negative (Negative)
[2025-05-08 14:56] LABS: Alanine Aminotransferase 19 U/L (7-40); Alkaline Phosphatase 59 U/L (46-116); Anion Gap 9 (5-15); BUN/Creatinine Ratio 15.2 (10.0-20.0); Blood Urea Nitrogen 14 mg/dL (9-23); Calcium 10.0 mg/dL (8.7-10.4); Carbon Dioxide 27 mmol/L (20-31); Chloride 105 mmol/L (98-107); Potassium 3.8 mmol/L (3.5-5.1); Sodium 141 mmol/L (136-145); Total Protein 7.9 g/dL (5.7-8.2)
[2025-05-08 14:57] LABS: Bilirubin, Total 0.9 mg/dL (0.2-1.0)
[2025-05-08 14:59] LABS: Albumin 5.1 g/dL (3.2-4.8); Glucose 107 mg/dL (74-106)
[2025-05-08] MEDS ORDERED: NAPR-746 PO (15:11)
[2025-05-08 15:14] VITALS: BP 149/79; PULSE 79; RESP 16; O2SAT 97
== END 2025-05-08 15:19 | disposition home or self-care (01) ==
LOC: ER 12:58
DX: M77.9 Enthesopathy, unspecified (principal); M25.521 Pain in right elbow; I10 Essential (primary) hypertension; E11.9 Type 2 diabetes mellitus without complications; E78.5 Hyperlipidemia, unspecified; Z79.84 Long term (current) use of oral hypoglycemic drugs; Z79.899 Other long term (current) drug therapy; Z90.710 Acquired absence of both cervix and uterus; Z87.440 Personal history of urinary (tract) infections; Z88.6 Allergy status to analgesic agent; Z91.013 Allergy to seafood
CPT/HCPCS: 36415; 73080; 80053; 81001; 84550; 85025; 93971

== ENCOUNTER → 2025-05-10 | Day surgery (SDC) | payer OTHER ==
[2025-05-08 16:34] LABS: Hematocrit 36.9 % (36.0-46.0); Hemoglobin 12.4 g/dL (12.2-16.2); Mean Corpuscular Hemoglobin 31.2 pg (28.0-32.0); Mean Corpuscular Volume 92.8 fL (80.0-100.0); Nucleated Red Blood Cells % 0.0 %
[2025-05-08 16:36] LABS: Urine Protein, UAD Negative (Negative)
[2025-05-08 16:48] LABS: Alanine Aminotransferase 20 U/L (7-40); Alkaline Phosphatase 57 U/L (46-116); Anion Gap 11 (5-15); BUN/Creatinine Ratio 11.1 (10.0-20.0); Bilirubin, Total 0.9 mg/dL (0.2-1.0); Blood Urea Nitrogen 11 mg/dL (9-23); Calcium 10.2 mg/dL (8.7-10.4); Carbon Dioxide 26 mmol/L (20-31); Chloride 105 mmol/L (98-107); Potassium 4.3 mmol/L (3.5-5.1); Sodium 142 mmol/L (136-145); Total Protein 7.7 g/dL (5.7-8.2)
[2025-05-08 16:50] LABS: INR 1.05 (0.9-1.15); Partial Thromboplastin Time 29.4 SEC (24.5-34.5); Prothrombin Time 11.1 sec (9.3-11.8)
[2025-05-08 16:53] LABS: Albumin 5.0 g/dL (3.2-4.8); Glucose 118 mg/dL (74-106)
[~2025-05-10] VITALS: Ht 162.6 cm; Wt 52.2 kg
[~2025-05-10] MED LIST changes: +ESMOLOL HCL 10 ML IV ONE; +FLUO1CRE EX; +HYDROmorphone HCL 2 MG/ML VL/or syr ONE; +LIDOCAINE 1% INJ PF 5ML AMP ONE; +METOCLOPRAMIDE HCL 5MG/ml INJ 2ml VIAL ONE; +NAPR-746 PO; +ONDANSETRON HCL 4 MG/2 ML VIAL ONE; +PROPOFOL 10 MG/ML 20 ML IV ONE; +SIMETHICONE 40 MG/0.6 ML ORAL DROP ONE
[2025-05-10 13:10] VITALS: PULSE 84; RESP 18; TEMP 97.3; O2SAT 99
--- NOTE | 2025-05-10 13:14 | DVHOP2 ---
Operative Report DATE OF OPERATION: 05/10/25 PROCEDURE: Diagnostic Colonoscopy. PREOPERATIVE INDICATION: The patient is a 69 -year-old female undergoing colonoscopy for colon cancer screening complaining of abdominal pain POSTOPERATIVE DIAGNOSES: 1. Moderate to severe scattered diverticular disease most prominent in the sigmoid with sigmoid fixation 2. Trace internal hemorrhoids otherwise normal examination up to the cecum PROCEDURE PERFORMED BY: Xiomara Russell M.D. SCOPE: Olympus videocolonoscope. ASA CLASS: 3. PREOPERATIVE MEDICATIONS: Mac sedation, Douglas Munoz PROCEDURE IN DETAIL: After obtaining an informed consent, the patient was placed on left lateral decubitus position. She was then sedated with the above medications. A rectal examination was performed that was normal. The colonoscope was then passed through the anus into the rectosigmoid and through the descending, transverse, and ascending colon up to the cecum with visualization of the appendiceal orifice, base of the cecum and the ileocecal valve. The colonoscope was then withdrawn. No polyps or masses were seen. There was no colitis. Patient had moderate scattered diverticular disease most prominent in the sigmoid with sigmoid fixation It was difficult to negotiate the colonoscope through the sigmoid area and p atient had to be reposition to the right lateral position On retroflexion and straight on view patient had trace to 1+ internal hemorrhoids The patient tolerated the procedure well without difficulty. WITHDRAWAL TIME: 6 minute QUALITY OF THE PREP: [place] Bowel Prep score: 9. COMPLICATIONS : None SPECIMENS: None DISPOSITION: Stable D/C to home PLAN: 1. Repeat colonoscopy in 7-10 years 2. Resume GI soft diet advance as tolerated 3. Increase fluid and fiber intake 4. Outpatient follow up with me in 4-6 weeks to review results and discuss further management XIOMARA RUSSELL MD May 10, 2025 13:14
[2025-05-10] MEDS: HYDROmorphone HCL 2 MG/ML VL/or syr IV ONE ×2 (13:48→14:32)
[2025-05-10] MEDS: ONDANSETRON HCL 4 MG/2 ML VIAL IV ONE (13:53)
[2025-05-10] MEDS: SIMETHICONE 40 MG/0.6 ML ORAL DROP PO ONE (14:02)
[2025-05-10] MEDS: METOCLOPRAMIDE HCL 5MG/ml INJ 2ml VIAL IV ONE (14:03)
--- NOTE | 2025-05-10 14:39 | DVH ---
Date: 05/10/2025 02:04 PM Examination: XY KUB ABDOMEN SINGLE VIEW History: abd pain Comparison: US KIDNEY on DOS: 07/30/24, CT ABD PELVIS WO CONTRAST on DOS: 09/19/22 TECHNIQUE: Frontal views of the abdomen was obtained. FINDINGS: Gaseous distended loops of colon are visualized. The lung bases are unremarkable. No acute osseous abnormality identified. Multiple soft tissue calcifications projecting over the bila teral flanks are favored to represent soft tissue calcifications /granulomas. IMPRESSION: Gaseous distended loops of colon are visualized.
[2025-05-10 15:55] VITALS: BP 124/57; PULSE 83; RESP 16; O2SAT 94
== END | disposition home or self-care (01) ==
LOC: GI 09:23
PROVIDERS: ATTEND Internal Medicine Gastroenterology
DX: R10.9 Unspecified abdominal pain (principal); K57.30 Diverticulosis of large intestine without perforation or abscess without bleeding; K64.0 First degree hemorrhoids; I10 Essential (primary) hypertension; E11.9 Type 2 diabetes mellitus without complications; Z90.710 Acquired absence of both cervix and uterus; Z98.41 Cataract extraction status, right eye; Z98.42 Cataract extraction status, left eye; Z79.899 Other long term (current) drug therapy; Z91.013 Allergy to seafood; Z98.890 Other specified postprocedural states
CPT/HCPCS: 36415; 45378; 74018; 80053; 81001; 82962; 85025; 85610; 85730; J1171; J2405; J2704; J2765; J7030

== ENCOUNTER 2025-05-14 10:26 | Emergency (ER) | payer OTHER ==
[~2025-05-14] VITALS: Ht 157.5 cm; Wt 52.2 kg
[~2025-05-14 10:26] MED LIST changes: -ESMOLOL HCL 10 ML IV ONE; -FLUO1CRE EX; -HYDROmorphone HCL 2 MG/ML VL/or syr ONE; -LIDOCAINE 1% INJ PF 5ML AMP ONE; -METOCLOPRAMIDE HCL 5MG/ml INJ 2ml VIAL ONE; -ONDANSETRON HCL 4 MG/2 ML VIAL ONE; -PROPOFOL 10 MG/ML 20 ML IV ONE; -SIMETHICONE 40 MG/0.6 ML ORAL DROP ONE
--- NOTE | 2025-05-14 12:00 | ED.PDOC ---
History of Present Illness(SKN HPI Comments This is a 69 year old female presenting to the ED with chief complaint of fall into poison terrie. Patient reports that today, her got dragged by their dog down a ditch, causing him to fall into a mcdowell of poison trerie. Patient relays that when attempting to help him, she had touched the poison terrie with her hands. Patient states she now has a burning pain to the bilateral hands. Patient denies any SOB, chest pain, head injury, or fall injury at this time. Chief Complaint: Fall Injury Time Seen by MD: 11:59 Primary Care Provider: BRIANNA History of Present Illness: Nurses Notes, Medications, Allergies Allergies: Coded Allergies: Beef Allergy (Verified Allergy, Intermediate, 01/18/23) Ibuprofen (Verified Allergy, Unknown, 05/14/25) Uncoded Allergies: seafood (Allergy, Intermediate, 01/18/23) Home Meds Active Scripts Naproxen (Naproxen) 500 Mg Tab, 500 MG PO BID, #30 TAB Prov:KELL BROCK 05/08/25 Hydrocodone-Acetaminophen (Hydrocodone Bitartrate/AC 5-325 mg) 1 Tab Tab, 1 TAB PO DAILY for 5 Days, #5 TAB Prov:EVANGELINA MARTIN MD 03/26/25 Hydrocodone-Acetaminophen (Hydrocodone/Acetaminophen 5-325 mg) 1 Tab Tab, 1 TAB PO TIDP PRN for 15 Days, #40 TAB Prov:SHEFALI GERMAN MD 05/20/23 Albuterol Sulfate (VENTOLIN MDI) 90 Mcg Ih, 90 MCG IN Q8HPRN PRN for 30 Days, #30 INH Prov:ANTONI SHEPARD MD 02/23/23 Gabapentin (Gabapentin) 100 Mg Cap, 100 MG PO BID for 60 Days, #120 CAP Prov:LAUREN DIXON SEISMOGRAPH SHOOTER 01/21/23 Meclizine HCl (Meclizine 25) 25 Mg Tab, 25 MG PO DAILY for 7 Days, #7 TAB Prov:EVANGELINA MARTIN MD 11/22/22 Reported Medications Metformin Hydrochloride (Metformin Hcl) 1,000 Mg Tab, 1 TAB PO BID 01/18/23 Ascorbic Acid (Gnp Vitamin C W/[place]) 500 Mg Tab, 1 TAB PO DAILY 4/25/23 Famotidine (PEPCID TABLET) 20 Mg Tb, 1 TAB PO BID 01/18/23 Gabapentin (Gabapentin) 300 Mg Cap, 2 CAP PO BID 08/22/22 Losartan Potassium (Losartan Potassium) 25 Mg Tab, 1 TAB PO DAILY 08/22/22 Atorvastatin Calcium (ATORVASTATIN CALCIUM) 20 Mg Tab, 1 TAB PO DAILY 08/22/22 Information Source: Patient, Spouse Mode of Arrival: Ambulatory Severity: Moderate Timing: Hours Duration: Since onset Prehospital treatment: None Location: Hand Mechanism: Poison Terrie Developed: Rash Associated Signs and Symptoms: Redness, Pain Past Medical History PAST MEDICAL HISTORY: Cancer, DM, High Lipids, HTN, UTI'S Surgical History: Hysterectomy MAINTENANCE DATA ANALYST History: No Pertinent MAINTENANCE DATA ANALYST History Family History Family History: Reviewed,noncontributory to illness, Family hx of DM Social History Smoker: Non-Smoker Alcohol: Denies ETOH Use Drugs: Denies Drug Use Lives In: Home Constitutional: denies: chills, diaphoresis, fatigue, fever, malaise, sweats, weakness, others EENTM: denies: blurred vision, double vision, ear bleeding, ear discharge, ear drainage, ear pain, ear ringing, eye pain, eye redness, hearing loss, mouth pain, mouth swelling, nasal discharge, nose bleeding, nose congestion, nose pain, photophobia, tearing, throat pain, throat swelling, voice changes, others Respiratory: denies: cough, hemoptysis, orthopnea, SOB at rest, shortness of breath, SOB with excertion, stridor, wheezing, others Cardiovascular: denies: chest pain, dizzy spells, diaphoresis, Dyspnea on exertion, edema, irregular heart beat, left arm pain, lightheadedness, palpitations, PND, syncope, others Gastrointestinal: denies: abdomen distended, abdominal pain, blood streaked bowels, constipated, diarrhea, dysphagia, difficulty swallowing, hematemesis, melena, nausea, poor appetite, poor fluid intake, rectal bleeding, rectal pain, vomiting, others Genitourinary: denies: abnormal vagina bleeding, burning, dyspareunia, dysuria, flank pain, frequency, hematuria, incontinence, pain, , vagina discharge, urgency, others Neurological: denies: dizziness, fainting, headache, left sided numbness, left sided weakness, numbness, paresthesia, pre-existing deficit, right sided numbness, right sided weakness, seizure, speech problems, tingling, tremors, weakness, others Musculoskeletal: denies: back pain, gout, joint pain, joint swelling, muscle pain, muscle stiffness, neck pain, others Integumetry: reports: rash (Bilateral hand rash); denies: bruises, change in color, change in hair/nails, dryness, laceration, lesions, lumps, wounds, others Allergic/Immunocompromised: denies: Difficulty Healing, Frequent Infections, Hives, Itching, others Hematologic/Lymphatic: denies: anemia, blood clots, easy bleeding, easy bruising, swollen glands, others Endocrine: denies: excessive hunger, excessive sweating, excessive thirst, excessive urination, flushing, intolerance to cold, intolerance to heat, unexplained weight gain, unexplained weight loss, others Psychiatric: denies: anxiety, bipolar disorder, depression, hopeless, panic disorder, schizophrenia, sleepless, suicidal, others All Other Systems: Reviewed and Negative Physical Exam General Appearance: No Apparent Distress, Normal HEENT: Normal ENT Inspection, Pharynx Normal, TMs Normal Neck: Full Range of Motion, Non-Tender, Normal, Normal Inspection Respiratory: Chest Non-Tender, Lungs Clear, No Accessory Muscle Use, No Respiratory Distress, Normal Breath Sounds Cardiovascular: No Edema, No JVD, No Murmur, No Gallop, Normal Peripheral Pulses, Regular Rate/Rhythm Breast Exam: Deferred Gastrointestinal: No Organomegaly, Non Tender, No Pulsatile Mass, Normal Bowel Sounds, Soft Genitalia: Deferred Pelvic: Deferred Rectal: Deferred Extremities: No calf tenderness, Normal capillary refill, Normal inspection, Normal range of motion, Non-tender, No pedal edema Musculoskeletal : Apperance: Normal Neurologic: Alert, paint roller covers supervisor II-XII nml as Tested, No Motor Deficits, Normal Affect, Normal Mood, No Sensory Deficits Cerebellar Function: Normal Reflexes: Normal Skin: Dry, Warm, Other (Erythematous papular rash to the bilateral palms. No streaking, non fluctuant, mild TTP) Lymphatic: No Adenopathy Was a procedure done? Was a procedure done?: No Differential Diagnosis (INTG) Differential Diagnosis: Contact Dermatitis X-Ray, Labs, Meds, VS Vital Signs Date Time Temp Pulse Resp B/P (MAP) Pulse Ox O2 Delivery O2 Flow Rate FiO2 05/14/25 10:29 98.8 98 18 122/79 99 98.8 Current Medications Medications (Trade) Dose Ordered Sig/Ananda Route Start Time Stop Time Status Last Admin Methylprednisolone Sodium Succinate (Solu Medrol) 125 mg ONCE ONCE IM 05/14/25 11:45 05/14/25 11:46 DC 05/14/25 12:08 Famotidine (Pepcid Tablet) 40 mg ONCE ONCE PO 05/14/25 11:45 05/14/25 11:46 DC 05/14/25 12:08 Diphenhydramine HCl (Benadryl Capsule) 25 mg ONCE ONCE PO 05/14/25 11:45 05/14/25 11:46 DC 05/14/25 12:08 X-Ray, Labs, Meds, VS Comment This is a 69 year old female presenting to the ED with chief complaint of bilateral hand rash. Patient arrives alert and oriented, ABC's intact, afebrile, vital signs stable, saturating well in room air Patient was given: Solu-Medrol 125mg IM, Benadryl 25mg IV, Famotidine, 40mg IV. Tolerated medications with no adverse reaction. Additional MDM Review of External, Non-ED records: External records reviewed. Discussion with independent historian (EMS, family) history obtained from the patient/parents (if applicable) at bedside Chronic conditions affecting care: None Social determinants of health affecting care: None Consideration of admission (observation or admission): I considered escalation of care to admission for this patient, however given the reassuring workup, the patient is safe for outpatient management. Time of 1ST Reevaluation: 11:50 Reevaluation 1ST: Unchanged Patient Education/Counseling: Diagnosis, Treatment Family Education/Counseling: Diagnosis, Treatment SEPSIS Sepsis Screen Date sepsis recognized/suspect: May 14, 2025 Time Sepsis recognized/suspect: 1031 Recent Procedure: No On Antibiotic Therapy: No Respiratory Rate >20: No Heart Rate >90: Yes Temp<36 C (96.8 F) or >38.3 C: No SBP <90 or MAP <65 mmHG: No New Acute Mental Status Change: No Is the patient on CPAP, BIPAP,: No Vital Signs Date Time Temp Pulse Resp B/P (MAP) Pulse Ox O2 Delivery O2 Flow Rate FiO2 05/14/25 10:29 98.8 98 18 122/79 99 98.8 Medications Medications Dose Ordered Sig/Ananda Route Start Time Stop Time Status Last Admin Dose Admin Diphenhydramine HCl 25 mg ONCE ONCE PO 05/14/25 11:45 05/14/25 11:46 DC 05/14/25 12:08 Famotidine 40 mg ONCE ONCE PO 05/14/25 11:45 05/14/25 11:46 DC 05/14/25 12:08 Methylprednisolone Sodium Succinate 125 mg ONCE ONCE IM 05/14/25 11:45 05/14/25 11:46 DC 05/14/25 12:08 Departure 1 Departure Time of Disposition: 14:08 Impression: Primary Impression: Contact dermatitis Qualified Codes: L25.9 - Unspecified contact dermatitis, unspecified cause Disposition: 01 HOME / SELF CARE / HOMELESS Condition: Stable e-Prescriptions Fluocinonide (Fluocinonide) 0.1 % Cre 1 APPLIC EX BID for 5 Days, #30 GRAMS 0 Refills Prov: MINERVA ARAGON NP 05/14/25 Discharged With: Significant Other Critical Care Note Critical Care Time?: No Stability Stability form required: No Heart Score Heart Score: Heart Score Response (Comments) Value History N/A 0 EKG N/A 0 Age N/A 0 Risk Factors N/A 0 Troponin N/A 0 Total 0 I personally scribed for MINERVA ARAGON SEISMOGRAPH SHOOTER ([email or web address]) on 05/14/25 at 12:00. Electronically submitted by Jeff Montoya ([email or web address]). MINERVA ARAGON NP May 14, 2025 12:00
[2025-05-14] MEDS: methylPREDNISolone SOD SUCC 125 MG/2 ML VL IM ONE (12:08)
[2025-05-14] MEDS: FAMOTIDINE 20 MG TAB PO ONE (12:08)
[2025-05-14] MEDS ORDERED: FLUO1CRE EX (14:10)
[2025-05-14] MEDS: HYDROCORTISONE 2.5% TOPICAL CREAM 30GM TUBE TOP ONE (14:28)
[2025-05-14 14:34] VITALS: BP 126/86; PULSE 66; RESP 16; TEMP 98.7; O2SAT 96
== END 2025-05-14 14:36 | disposition home or self-care (01) ==
LOC: ER 10:26
DX: L25.9 Unspecified contact dermatitis, unspecified cause (principal); I10 Essential (primary) hypertension; E11.9 Type 2 diabetes mellitus without complications; E78.5 Hyperlipidemia, unspecified; Z79.84 Long term (current) use of oral hypoglycemic drugs; Z79.899 Other long term (current) drug therapy; Z87.440 Personal history of urinary (tract) infections; Z90.710 Acquired absence of both cervix and uterus; Z88.6 Allergy status to analgesic agent
CPT/HCPCS: 96372; 99284; J2919

== ENCOUNTER → 2025-07-03 | Outpatient (CLI) | payer OTHER ==
[~2025-07-03] MED LIST changes: +FLUO1CRE EX
[2025-07-03 09:58] LABS: Hematocrit 36.6 % (36.0-46.0); Hemoglobin 12.4 g/dL (12.2-16.2); Mean Corpuscular Hemoglobin 31.3 pg (28.0-32.0); Mean Corpuscular Volume 92.6 fL (80.0-100.0); Nucleated Red Blood Cells % 0.0 %
[2025-07-03 10:31] LABS: Alanine Aminotransferase 17 U/L (7-40); Albumin 4.7 g/dL (3.2-4.8); Alkaline Phosphatase 63 U/L (46-116); Anion Gap 11 (5-15); BUN/Creatinine Ratio 16.3 (10.0-20.0); Blood Urea Nitrogen 15 mg/dL (9-23); Calcium 9.6 mg/dL (8.7-10.4); Carbon Dioxide 27 mmol/L (20-31); Chloride 104 mmol/L (98-107); Potassium 4.5 mmol/L (3.5-5.1); Sodium 142 mmol/L (136-145); Total Protein 7.7 g/dL (5.7-8.2)
[2025-07-03 10:32] LABS: Bilirubin, Total 0.7 mg/dL (0.2-1.0)
[2025-07-03 10:35] LABS: Glucose 146 mg/dL (74-106)
[2025-07-03 11:22] LABS: Iron 90.0 ug/dL (50-170)
[2025-07-03 11:24] LABS: Total Iron Binding Capacity 298.0 ug/dL (250-425)
== END | disposition home or self-care (01) ==
LOC: LAB 09:41
PROVIDERS: ATTEND Physician Assistant Medical
DX: C50.911 Malignant neoplasm of unspecified site of right female breast (principal); C71.2 Malignant neoplasm of temporal lobe; D50.9 Iron deficiency anemia, unspecified; N64.9 Disorder of breast, unspecified; N64.53 Retraction of nipple; R10.13 Epigastric pain; M81.8 Other osteoporosis without current pathological fracture
CPT/HCPCS: 36415; 80053; 82728; 83540; 83550; 85025; 86300

== ENCOUNTER 2025-09-05 10:51 | Outpatient (CLI) | payer OTHER ==
[2025-09-05 11:28] LABS: Hematocrit 36.0 % (36.0-46.0); Hemoglobin 12.3 g/dL (12.2-16.2); Mean Corpuscular Hemoglobin 31.9 pg (28.0-32.0); Mean Corpuscular Volume 93.5 fL (80.0-100.0); Nucleated Red Blood Cells % 0.1 %
[2025-09-05 11:37] LABS: Urine Protein, UAD Negative (Negative)
[2025-09-05 11:50] LABS: Triglycerides 103.0 mg/dL (< 150)
[2025-09-05 11:51] LABS: Magnesium 1.5 mg/dL (1.6-2.6)
[2025-09-05 11:52] LABS: Cholesterol 136.0 mg/dL (< 200); HDL Cholesterol 48.0 mg/dL (40-59)
[2025-09-06 10:00] LABS: Hepatitis B Surface Antigen Negative (Negative)
[2025-09-06 10:20] LABS: Hepatitis C Antibody Negative (Negative)
== END 2025-09-05 17:00 | disposition home or self-care (01) ==
LOC: LAB 10:51
PROVIDERS: ATTEND Internal Medicine
DX: E55.9 Vitamin D deficiency, unspecified (principal); E78.49 Other hyperlipidemia; E61.2 Magnesium deficiency; E79.0 Hyperuricemia without signs of inflammatory arthritis and tophaceous disease; D51.9 Vitamin B12 deficiency anemia, unspecified; R68.89 Other general symptoms and signs; R73.09 Other abnormal glucose; R94.6 Abnormal results of thyroid function studies; R82.998 Other abnormal findings in urine; R82.90 Unspecified abnormal findings in urine
CPT/HCPCS: 36415; 80061; 80074; 81001; 82043; 82306; 83735; 84443; 85025; 87086